=== PATIENT | male | born 1960 | race Hispanic/Latino ===

== ENCOUNTER 2019-05-09 08:46 | Observation (INO) | payer SELFPAY ==
--- NOTE | 2019-05-09 09:31 | RAD ---
XR Chest Pa Lat STANDARD History: Fluid overload Comparison: None. Findings: Lungs are clear. No pneumothorax or effusion. Cardiac silhouette and mediastinal contours a re within normal limits. Impression: No acute intrathoracic abnormality.
[2019-05-09 09:38] LABS: #Eosinphils 0.1 thou/uL (0.0-0.7); #Lymphocytes 2.2 thou/uL (1.20-3.40); #Monocytes 0.6 thou/uL (0.11-0.59); #Neutrophils 7.5 thou/uL (1.40-6.50); %Basophils 0.2 % (0.0-1.0); %Eosinophils 1.1 % (0.0-10.0); %Lymphocytes 20.8 % (21.0-51.0); %Monocytes 5.9 % (0.0-10.0); Hemoglobin 12.1 g/dL (14.0-18.0); Mean Corpuscular HGB CONC 31.1 g/dL (32.0-36.0); Mean Corpuscular Hemoglobin 25.5 pg (27.0-31.0); Mean Corpuscular Volume 81.8 fL (78.0-98.0); Mean Platelet Volume 9.6 fL (7.4-10.4); Platelet Count 184 thou/uL (130-400); RBC Distribution Width 21.8 % (11.5-14.5); Red Blood Cell (RBC) Count 4.75 mill/uL (4.70-6.10); White Blood Cell (WBC) Count 10.5 thou/uL (4.8-10.8)
[2019-05-09 09:56] LABS: ALT (SGPT) 35 U/L (8-55); AST (SGOT) 15 U/L (5-34); Alkaline Phosphatase 75 U/L (40-150); Anion Gap 12 mmol/L (10-20); BUN (Urea Nitrogen) 13 mg/dL (8.4-25.7); Bilirubin, Total 0.4 mg/dL (0.2-1.2); Calc. Creatinine Clearance 0 mL/min (70-130); Calcium 9.4 mg/dL (7.8-10.44); Carbon Dioxide 29 mmol/L (22-29); Chloride 104 mmol/L (98-107); Estimated GFR-MDRD 86; Globulin 3.4 g/dL (2.4-3.5); Glucose 98 mg/dL (70-105); Potassium 3.7 mmol/L (3.5-5.1); Protein, Total 7.4 g/dL (6.0-8.3); Sodium 141 mmol/L (136-145)
[2019-05-09 10:21] LABS: MDiff Complete? YES; Polychromasia SLIGHT = 2-3 cells (100X) (0-2/hpf)
[2019-05-09] MEDS ORDERED: Furosemide 40 MG/4 ML VIAL ONE (12:15)
[2019-05-09] MEDS ORDERED: Zolpidem Tartrate 5 MG TAB PO PRN (13:10)
[2019-05-09] MEDS ORDERED: Ondansetron ODT 4 MG TAB PO PRN (13:10)
--- NOTE | 2019-05-09 13:41 | HP ---
[facility] Call admission. [facility] HISTORY OF PRESENT ILLNESS: The patient states he has too much water in his system. He states his hands and legs have been swelling about 6 months. He has had shortness of breath with exertion for the past 2 months. No chest pain. He gives no history of orthopnea or paroxysmal nocturnal dyspnea. PAST MEDICAL HISTORY: Hypertension. MEDICATIONS: 1. Toprol 100 mg a day. 2. Nifedipine 30 mg. 3. Furosemide 40 mg a day. ALLERGIES: NO KNOWN DRUG ALLERGIES. PAST SURGICAL HISTORY: None. FAMILY HISTORY: No coronary artery disease. Mother and father had diabetes and hypertension. SOCIAL HISTORY: , full code. , next of kin. No tobacco use. States he has not had nothing alcoholic to drink in 2 months. He used to drink a case of beer on weekends. REVIEW OF SYSTEMS: GENERAL: He has migraines frequently. No dizziness, fainting, fever or chills. EYES: No double vision, blurred vision, or flashing light. EARS, NOSE, AND THROAT: No ear pain or drainage. No nasal bleeding. No trouble swallowing. CARDIAC: No chest pain, orthopnea, or paroxysmal nocturnal dyspnea. RESPIRATION: He has a dry cough with no history of asthma. No wheezing. GASTROINTESTINAL: No nausea, vomiting, diarrhea, or constipation. GENITOURINARY: No hematuria, dysuria, or nocturia. MUSCULOSKELETAL: No pain or swelling in his arms or legs. NEUROLOGICAL: No strokes, seizures, or focal weakness. PSYCHIATRIC: No anxiety or depression. SKIN: No bruising, bleeding, or rash. HEME/LYMPH: No tender or swollen lymph nodes in axilla, inguinal, or cervical area. PHYSICAL EXAMINATION: GENERAL: The patient is alert, oriented, cooperative, pleasant gentleman with at bedside. VITAL SIGNS: Blood pressure 184/49, pulse 85, respirations 16, O2 saturation 94 on room air, temperature 97.8. HEAD, EYES, EARS, NOSE, AND THROAT: Revealed pupils are equal, round, and reactive to light. Extraocular movements are intact. Sclerae are white. Tympanic membranes are clear. Nose is clear. Oral mucosal membranes are wet. Dental hygiene is good. NECK: He has a short thick neck with no palpable lymphadenopathy or thyromegaly. CHEST: Clear to auscultation and percussion. HEART: Regular rate and rhythm. First and second heart sounds are clear. There are no murmurs or gallops. ABDOMEN: Soft. Bowel sounds are normal. There is no hepatosplenomegaly. No mass. No rebound. It is protuberant. EXTREMITIES: Reveal 3 to 4+ pitting edema to above the knee. He has nonpitting edema of his hands. No cyanosis or clubbing. Pulses; carotid, radial, and femoral pulses intact. Pedal pulses totally obscured by the edema. SKIN: Warm and dry. LYMPH NODES: No tender swollen lymph nodes in axilla, inguinal, and cervical area. NEUROLOGICAL: Cranial nerves 2 through 12 are intact. Deep tendon reflexes are symmetric. IMAGING STUDIES: Chest x-ray, no cardiomegaly, CHF, or infiltrate. Reviewed by me. EKG, regular sinus rhythm with no ST-T abnormality, reviewed by me. LABORATORY DATA: CBC; white count 10.5, hemoglobin low at 12.1 with microchromic indices, platelet count 184,000. Chemistries and comprehensive metabolic profile are normal. Troponins normal. BNP is normal. ADMITTING DIAGNOSES: 1. Anasarca. 2. Uncontrolled hypertension. 3. Iron deficiency anemia. PLAN: Lasix 80 IV q.12. Hold calcium channel valente as it can aggravate edema. Continue Toprol. Considering adding QUOC inhibitor. Iron binding capacity has been ordered. I do not believe this patient can be adequately diuresed while in the hospital, he will have to be. Hopefully, we can get significant amount of the edema off on observation basis and discharge him on a higher dose of Lasix and different blood pressure medicines. Job ID: [id number]
[2019-05-09 13:59] LABS: Iron 25 ug/dL (65-175); Iron Binding Capacity, Total 388 mcg/dL (261-462); Troponin I Less than 0.010 ng/mL (< 0.028)
[2019-05-09] MEDS ORDERED: Furosemide 100 MG/10 ML VIAL SLOW IVP SCH ×2 (14:00→22:00)
[2019-05-09 15:40] VITALS: BMI 49.3
[2019-05-09 17:44] LABS: Troponin I 0.014 ng/mL (< 0.028)
[2019-05-10 05:11] LABS: Anion Gap 16 mmol/L (10-20); BUN (Urea Nitrogen) 13 mg/dL (8.4-25.7); Calc. Creatinine Clearance 188 mL/min (70-130); Calcium 9.3 mg/dL (7.8-10.44); Carbon Dioxide 27 mmol/L (22-29); Chloride 102 mmol/L (98-107); Estimated GFR-MDRD 90; Glucose 112 mg/dL (70-105); Sodium 142 mmol/L (136-145)
[2019-05-10 05:14] LABS: Potassium 2.9 mmol/L (3.5-5.1)
[2019-05-10] MEDS ORDERED: Potassium Chloride 20 MEQ TAB PO SCH (05:30)
[2019-05-10] MEDS: Furosemide 100 MG/10 ML VIAL SLOW IVP SCH ×2 (05:52→13:16)
[2019-05-10 06:09] LABS: #Eosinphils 0.1 thou/uL (0.0-0.7); #Lymphocytes 1.9 thou/uL (1.20-3.40); #Monocytes 0.7 thou/uL (0.11-0.59); #Neutrophils 5.9 thou/uL (1.40-6.50); %Basophils 0.4 % (0.0-1.0); %Eosinophils 1.1 % (0.0-10.0); %Lymphocytes 22.3 % (21.0-51.0); %Monocytes 8.4 % (0.0-10.0); %Neutrophils 67.7 % (42.0-75.0); Band 6 % (5-11); Eosinophils 2 % (0-10); Hemoglobin 11.3 g/dL (14.0-18.0); Lymphocytes 14 % (21-51); MDiff Complete? YES; Mean Corpuscular HGB CONC 30.9 g/dL (32.0-36.0); Mean Corpuscular Hemoglobin 25.2 pg (27.0-31.0); Mean Corpuscular Volume 81.4 fL (78.0-98.0); Mean Platelet Volume 9.6 fL (7.4-10.4); Monocytes 11 % (0-10); Neutrophil 66 % (42-75); Platelet Count 169 thou/uL (130-400); RBC Distribution Width 21.8 % (11.5-14.5); Reactive Lymphocytes 1 % (0-10); White Blood Cell (WBC) Count 8.7 thou/uL (4.8-10.8)
--- NOTE | 2019-05-10 07:43 | PDOC.PN ---
- Subjective Encounter Start Date: 05/10/19 Encounter Start Time: 07:42 Subjective: good diuresis - Objective Resuscitation Status - Order Detail: 05/09/19 13:06 Resuscitation Status Routine Resuscitation Status: FULL: Full Resuscitation Vital Signs & Weight: Vital Signs (12 hours) Temp Pulse Resp BP Pulse Ox 05/10/19 03:55 98.1 F 92 18 166/84 H 92 L 05/09/19 23:44 83 143/84 H Weight Weight 318 lb 14.4 oz I&O: 05/09/19 05/10/19 05/11/19 06:59 06:59 06:59 Intake Total 380 Output Total 2125 Balance -1745 Result Diagrams: 05/10/19 04:21 05/10/19 04:21 Phys Exam - Physical Examination Neck: no JVD Respiratory: clear to auscultation bilateral Cardiovascular: RRR, no significant murmur Gastrointestinal: soft, positive bowel sounds Musculoskeletal: edema present Dx/Plan (1) Anasarca Code(s): R60.1 - GENERALIZED EDEMA Status: Acute (2) HTN (hypertension) Code(s): I10 - ESSENTIAL (PRIMARY) HYPERTENSION Status: Chronic Qualifiers: Hypertension type: essential hypertension Qualified Code(s): I10 - Essential (primary) hypertension (3) Hypokalemia Code(s): E87.6 - HYPOKALEMIA Status: Acute (4) Iron deficiency anemia Code(s): D50.9 - IRON DEFICIENCY ANEMIA, UNSPECIFIED Status: Acute Qualifiers: Iron deficiency anemia type: unspecified iron deficiency Qualified Code(s) : D50.9 - Iron deficiency anemia, unspecified - Plan stool for occult blood -: add k dur 20 qdd -: add ferrous gluconate 324 bid -: cont diuresis -: add apresoline 25 tid * .
[2019-05-10] MEDS: Potassium Chloride 20 MEQ TAB PO SCH (07:50)
[2019-05-10] MEDS: hydrALAZINE 25 MG TAB PO SCH ×3 (07:50→20:39)
[2019-05-10] MEDS: Ferrous Gluconate 324 MG TAB PO SCH (07:50)
[2019-05-10] MEDS: Enoxaparin Sodium 40 MG/0.4 ML SYRINGE SC SCH (07:51)
[2019-05-10] MEDS: Acetaminophen 325 MG TAB PO PRN (18:02)
[2019-05-11] MEDS: Acetaminophen 325 MG TAB PO PRN (03:35)
[2019-05-11] MEDS: Furosemide 100 MG/10 ML VIAL SLOW IVP SCH (05:39)
[2019-05-11 07:58] VITALS: BP 131/70; TEMP 98
[2019-05-11] MEDS: Ferrous Gluconate 324 MG TAB PO SCH (08:06)
[2019-05-11] MEDS: hydrALAZINE 25 MG TAB PO SCH (08:06)
[2019-05-11] MEDS: Potassium Chloride 20 MEQ TAB PO SCH (08:06)
[2019-05-11] MEDS: Enoxaparin Sodium 40 MG/0.4 ML SYRINGE SC SCH (08:07)
--- NOTE | 2019-05-11 08:12 | DIS ---
DATE OF ADMISSION: 05/09/2019 DATE OF DISCHARGE: 05/11/2019 [facility] Call Admission for [facility]. The patient has no doctor. Referred to [facility] Hospitalist Service for generalized edema. The patient was seen and examined. He had 3 to 4+ edema in his extremities. FINAL DIAGNOSES: 1. Anasarca. 2. Hypertension. 3. Iron deficiency anemia. 4. Hypokalemia. He was discharged on a heart-healthy diet. PRESCRIPTIONS: Written for; 1. Hydralazine 25 mg p.o. t.i.d. 2. K-Dur 20 mEq a day. 3. Lasix 80 mg twice a day. 4. Ferrous gluconate 324 mg twice a day. 5. He was already on losartan/hydrochlorothiazide 50/12.5 one a day that was continued. 6. He was on metoprolol 50 mg a day that was continued. ALLERGIES: NONE. DIET: Heart healthy. PENDING AT TIME OF DISCHARGE: Nothing. HOSPITAL COURSE: The patient was evaluated thoroughly. His chest x-ray revealed no evidence of congestive heart failure, etc. His laboratory, he had an anemia of 12.1 with microcytic, microchromic indices. His chemistries, comprehensive metabolic profile was normal. For some reason, the ER ordered troponin levels, which were also normal. He also had a normal BNP. Iron studies were drawn. He had an iron of 25 and a TIBC of 388. Diagnostic of iron deficiency anemia, he was started on iron. A stool for occult blood was done, which was negative. The patient was on nifedipine, which increases fluid retention. This was discontinued and adjusted and replaced with other medicines. The patient has diuresed significantly. His hands are much less edematous. He is down to 2+ edema in his ankles. He is being discharged on the 80 mg of Lasix twice a day. He does not have a doctor. I have told him he really needs to obtain a doctor at followup with a physician. Since there is no etiology of his iron deficiency anemia, he definitely needs panendoscopy as an outpatient. No consultations were done. No procedures were done. At discharge, the patient's vital signs are stable. He has lost 4 pounds over the past 24 hours. I suspect with the Lasix 80 mg twice a day, he will continue to diurese. This will probably need to be adjusted at followup. His cardiac and pulmonary exam were normal. Job ID: [id number]
--- NOTE | 2019-05-13 16:10 | EKG ---
Test Reason : Blood Pressure : / mmHG Vent. Rate : 094 BPM Atrial Rate : 094 BPM P-R Int : 172 ms QRS Dur : 096 ms QT Int : 382 ms P-R-T Axes : 046 241 026 degrees QTc Int : 477 ms Normal sinus rhythm Right superior axis deviation Abnormal ECG Confirmed by LOBITO DE JESUS M.D. ([id number]), production editor MERLY LEONARD ([id number]) on 05/13/2019 4:10:06 PM Referred By: Confirmed By:LOBITO DE JESUS M.D.
== END 2019-05-11 09:05 | disposition home or self-care (01) ==
LOC: ERS 08:46 → ERHOLD 12:25 → 2SW 14:45
PROVIDERS: ADMIT Internal Medicine; ATTEND Internal Medicine
DX: R60.1 Generalized edema (principal); I10 Essential (primary) hypertension; D50.9 Iron deficiency anemia, unspecified; E87.6 Hypokalemia; Z79.899 Other long term (current) drug therapy
CPT/HCPCS: 36415; 71046; 80048; 80053; 82274; 82550; 83540; 83550; 83880; 84484; 85025; 93005; 93306; 96372; 96374; 96376; G0378; J1650; J1940; Q0162

== ENCOUNTER 2019-05-24 15:08 | Inpatient (IN) | payer SELFPAY ==
[~2019-05-24 15:08] MED LIST: ISOVUE-370 76%-LOCM 1 ML ONE
[2019-05-24 16:02] LABS: #Eosinphils 0.2 thou/uL (0.0-0.7); #Lymphocytes 2.2 thou/uL (1.20-3.40); #Monocytes 0.8 thou/uL (0.11-0.59); #Neutrophils 4.5 thou/uL (1.40-6.50); %Basophils 0.4 % (0.0-1.0); %Eosinophils 2.1 % (0.0-10.0); %Lymphocytes 28.7 % (21.0-51.0); %Monocytes 10.9 % (0.0-10.0); Hemoglobin 12.8 g/dL (14.0-18.0); Mean Corpuscular HGB CONC 32.3 g/dL (32.0-36.0); Mean Corpuscular Hemoglobin 25.9 pg (27.0-31.0); Mean Corpuscular Volume 80.1 fL (78.0-98.0); Mean Platelet Volume 9.1 fL (7.4-10.4); Platelet Count 266 thou/uL (130-400); RBC Distribution Width 20.1 % (11.5-14.5); Red Blood Cell (RBC) Count 4.94 mill/uL (4.70-6.10); White Blood Cell (WBC) Count 7.8 thou/uL (4.8-10.8)
[2019-05-24] MEDS ORDERED: Furosemide 100 MG/10 ML VIAL ONE (16:06)
--- NOTE | 2019-05-24 16:17 | RAD ---
CHEST ONE VIEW: 05/23/19 COMPARISON: 05/09/19. HISTORY: Dyspnea. FINDINGS: Slight elongation of the aorta. Normal cardiac silhouette. Pulmonary vessels and hilum are normal. Co stophrenic angles are clear. Chronic changes, without consolidation or mass. No pneumothorax or osseo us abnormalities. Slight elevation of the right hemidiaphragm, is unchanged. IMPRESSION: No acute cardiopulmonary process. POS: [facility]
[2019-05-24 16:20] LABS: ALT (SGPT) 50 U/L (8-55); AST (SGOT) 41 U/L (5-34); Albumin 3.7 g/dL (3.5-5.0); Alkaline Phosphatase 72 U/L (40-150); Anion Gap 18 mmol/L (10-20); BUN (Urea Nitrogen) 11 mg/dL (8.4-25.7); Calc. Creatinine Clearance 0 mL/min (70-130); Calcium 9.4 mg/dL (7.8-10.44); Carbon Dioxide 28 mmol/L (22-29); Chloride 89 mmol/L (98-107); Estimated GFR-MDRD 50; Globulin 3.7 g/dL (2.4-3.5); Glucose 122 mg/dL (70-105); Protein, Total 7.4 g/dL (6.0-8.3); Sodium 132 mmol/L (136-145)
[2019-05-24 16:25] LABS: Potassium 2.7 mmol/L (3.5-5.1)
[2019-05-24] MEDS ORDERED: Magnesium 2 GM/50 ML BAG (IN WATER) ONE (17:16)
[2019-05-24] MEDS ORDERED: Acetaminophen 500 MG TAB ONE (17:16)
[2019-05-24] MEDS ORDERED: Potassium Chloride 40 MEQ in Sodium Chloride 0.9% 500 ML IVPB ONE (17:30)
[2019-05-24 19:16] LABS: Troponin I Less than 0.010 ng/mL (< 0.028)
[2019-05-24] MEDS ORDERED: Acetaminophen 650 MG Suppository PR PRN (20:27)
[2019-05-24] MEDS ORDERED: Sodium Chloride 0.9% 1,000 ML IV SCH (20:30)
[2019-05-24] MEDS: Senokot S 8.6-50 MG TAB PO SCH (21:05)
[2019-05-24] MEDS: Famotidine/PF 20 mg/2ml Vial SLOW IVP SCH (21:07)
[2019-05-24 21:20] LABS: Anion Gap 20 mmol/L (10-20); CK (CPK) 210 U/L (30-200); Carbon Dioxide 25 mmol/L (22-29); Chloride 90 mmol/L (98-107); Magnesium 2.1 mg/dL (1.6-2.6); Potassium 3.2 mmol/L (3.5-5.1); Sodium 132 mmol/L (136-145)
[2019-05-24 21:22] LABS: Troponin I Less than 0.010 ng/mL (< 0.028)
--- NOTE | 2019-05-24 21:40 | CT ---
CT arteriogram chest with IV contrast and 3-D imaging HISTORY: Chest pain. Dyspnea. FINDINGS: Low density filling defects are present within the pulmonary arteries to the right lower lo be, with near complete occlusion. Incompletely occlusive emboli within the right upper lobe and left upper lobe pulmonary arteries. Normal origin of the great vessels at the aortic arch. Mild bibasilar atelectasis. No mediastinal danisha nopathy. No pleural fluid or pneumothorax. IMPRESSION: Bilateral pulmonary emboli. Overall moderate clot burden. Page was placed to the [facility] clinician at 2133 hours. Code CR.
--- NOTE | 2019-05-24 21:40 | HP ---
CHIEF COMPLAINT: Shortness of breath at rest and weakness. HISTORY OF PRESENT ILLNESS: Mr. Clay is a pleasant 58-year-old man who was recently discharged from the hospital on May 11, 2019, after being treated for generalized edema with 80 mg of Lasix twice a day, which was provided upon discharge. He was also discharged on hydralazine 25 mg 3 times a day and advised to establish care with a primary care physician. The patient has not done so due to not having insurance. He states he had generalized deconditioning and weakness at the time of his recent admission and has had no improvement with regard to that. He continued with medications until 3 days ago. The patient continued to be very short of breath with any exertion and also was experiencing significant weakness and reduced appetite. He has not had anything to eat for approximately 2 weeks. He also has been experiencing headaches intermittently, which he attributed to the medications. This prompted him to stop all medicines 3 days ago, after which he began to note recurrent generalized edema. His shortness of breath has persisted, but not worsened. The patient states he has been checking his blood pressure at home twice a day and typically this has been prior to taking his medications. His systolic blood pressure has ranged anywhere between 115 and 120. He is unsure how the medications then affected his blood pressure and if he has been hypotensive at any time given the fact that he has been on 25 mg of apresoline 3 times a day and Lasix 80 mg twice a day. The patient denies having any syncopal episodes. He reports feeling lightheaded and just generally weak. He reports having a persistent cough. It is dry and denies any hemoptysis. He denies any recent fevers, chills, or sweats. Denies having any chest pain or palpitations. No abdominal pain or cramping. He does complain of constipation until today. His last bowel movement was 3 days ago. Bowel movement today was notable for hard stools, but normal in color. He does state occasionally he will experience some blood-tinged stools as well as straining. He denies having any urinary symptoms. All other review of systems are negative. The patient underwent an echo on May 10, 2019, which showed an EF of 60% to 65% with changes suggestive of diastolic dysfunction. The left atrium mildly dilated with mild mitral regurgitation and mild tricuspid regurgitation. Aortic valve appeared sclerotic. PAST MEDICAL HISTORY: 1. Hypertension. 2. History of heavy alcohol use, previously drank 24 beers over the weekend. 3. Obesity. 4. Iron-deficiency anemia. PAST SURGICAL HISTORY: None. ALLERGIES: NO KNOWN DRUG ALLERGIES. CURRENT MEDICATIONS: 1. Hydralazine 25 mg p.o. 3 times a day. 2. Potassium chloride 20 mEq p.o. twice daily. 3. Lasix 80 mg p.o. twice daily. PHYSICAL EXAMINATION: GENERAL: The patient appears obese, well developed, and in no acute distress. He is notably short of breath with minimal exertion. VITAL SIGNS: Temperature 98, pulse 96, respirations 24, O2 saturation 97% on room air, blood pressure 131/86. HEENT: Normocephalic and atraumatic. Pupils are equal, round, and reactive to light. Sclerae without icterus. Oropharynx is clear. NECK: Supple without lymphadenopathy. No tenderness. LUNGS: Clear to auscultation bilaterally. Reduced breath sounds at the bilateral bases. No rales or crackles. CARDIAC: Regular rate and rhythm. ABDOMEN: Obese, nontender. No guarding or rigidity. He does have an umbilical hernia that is reducible and nontender. No renal angle tenderness. EXTREMITIES: Trace bilateral lower extremity edema. NEUROLOGIC: Alert and oriented x3. Speech normal. No neuro deficits. SKIN: Without rash or jaundice. DIAGNOSTIC STUDIES: EKG showed sinus tachycardia with a heart rate of 105 and prolonged QT with a QTc of 507 milliseconds. Chest x-ray, no infiltrates, pneumothorax. No masses, cardiomegaly, and no signs of congestive heart failure or pleural effusions. No acute cardiopulmonary process noted. Slight elevation of the right hemidiaphragm is unchanged. LABORATORY DATA: White blood count 7.8, hemoglobin 12.8, hematocrit 39.5, and platelets 266. Sodium 132, potassium 2.7, anion gap 18, BUN 11, creatinine 1.45 , GFR 50, glucose 122, calcium 9.4, magnesium 1.5, total bilirubin 1.0, AST 41, ALT 50, alkaline phosphatase 72. Troponin I negative x2. BNP 37.3, total protein 7.4, albumin 3.7. IMPRESSION AND PLAN: Mr. Clay is a pleasant 58-year-old man who has been referred to [facility] for management of the following. 1. Shortness of breath. Low sats have improved to 97% on room air. Treated with Lasix in the ER for suspected fluid overload. Chest x-ray unremarkable. BNP normal. We will obtain D-dimer and rule out PE given the fact that he has been extremely sedentary and therefore potentially at risk for PE. He is also tachycardic and tachypneic. If elevated, we will obtain a CT angiogram of the chest. 2. Generalized weakness. The patient with physical deconditioning, which has been persisting even at the time of his recent admission from which he has not recovered. He does have a lack of appetite and has had no intake for the last 2 weeks, which could be contributing to his weakness. We will consult the dietitian as well as PT/OT. 3. Generalized edema. Recent echo done already showing a normal EF, however, with some evidence of diastolic dysfunction. He does have a history of heavy alcohol use and potentially the generalized edema could be associated with underlying liver cirrhosis. He has not had investigations for this in the past. We will monitor LFTs. Currently, AST is elevated at 41. 4. Electrolyte abnormalities. Potassium and magnesium are replaced. We will recheck and replace further as necessary. 5. Hypertension. Monitor blood pressure. For now, we will hold hydralazine as patient states his systolic blood pressure has been in the 115 to 120s at home. We will order hydralazine as p.r.n. 6. Constipation. Senna stool softeners. 7. Gastrointestinal prophylaxis. 8. Deep venous thrombosis prophylaxis with ROBYN hose. We will await D-dimer. 9. Code status is full. His surrogate decision maker is his , Pamela Clay. The patient's case discussed with attending who agrees with plan of care as described above. ADDENDUM: Informed by Radiologist at 21:41pm that patient was confirmed to have bilateral pulmonary emboli without evidence of right heart strain. Patient with normal sats on RA but placed on continuous Oxygen. Heparin initiated as per DVT/PE protocol. Consult placed to Dr. Barber for tomorrow. Strict bedrest x 24 hours. No indication for transfer to [facility] at this present time. Converted to inpatient. Discussed with Dr. Wharton who agrees with plan as above. Job ID: [id number] [facility]
[2019-05-24 22:09] LABS: Hemoglobin 11.9 g/dL (14.0-18.0); Platelet Count 257 thou/uL (130-400)
[2019-05-24] MEDS: Heparin 10,000 UNITS/ 10 ML VIAL SLOW IVP SCH (23:07)
[2019-05-24] MEDS: Heparin 25,000 units/D5W 500 ML IVPB SCH (23:14)
[2019-05-24] MEDS: Acetaminophen 325 MG TAB PO PRN (23:16)
[2019-05-25] MEDS: Acetaminophen 325 MG TAB PO PRN ×3 (04:08→23:03)
[2019-05-25 04:27] LABS: #Basophils 0.1 thou/uL (0.0-0.2); #Eosinphils 0.2 thou/uL (0.0-0.7); #Monocytes 0.8 thou/uL (0.11-0.59); #Neutrophils 2.9 thou/uL (1.40-6.50); %Eosinophils 3.1 % (0.0-10.0); %Lymphocytes 33.2 % (21.0-51.0); %Monocytes 13.2 % (0.0-10.0); %Neutrophils 49.5 % (42.0-75.0); Hemoglobin 11.5 g/dL (14.0-18.0); Mean Corpuscular HGB CONC 31.5 g/dL (32.0-36.0); Mean Corpuscular Hemoglobin 25.2 pg (27.0-31.0); Mean Corpuscular Volume 80.3 fL (78.0-98.0); Mean Platelet Volume 8.5 fL (7.4-10.4); Platelet Count 259 thou/uL (130-400); RBC Distribution Width 19.9 % (11.5-14.5); Red Blood Cell (RBC) Count 4.56 mill/uL (4.70-6.10); White Blood Cell (WBC) Count 5.9 thou/uL (4.8-10.8)
[2019-05-25 04:42] LABS: Anion Gap 15 mmol/L (10-20); BUN (Urea Nitrogen) 11 mg/dL (8.4-25.7); Calc. Creatinine Clearance 108 mL/min (70-130); Calcium 9.3 mg/dL (7.8-10.44); Carbon Dioxide 29 mmol/L (22-29); Chloride 92 mmol/L (98-107); Estimated GFR-MDRD 51; Glucose 127 mg/dL (70-105); Sodium 133 mmol/L (136-145)
[2019-05-25 04:44] LABS: Potassium 2.8 mmol/L (3.5-5.1)
[2019-05-25] MEDS: Heparin 10,000 UNITS/ 10 ML VIAL SLOW IVP SCH ×2 (04:52→22:25)
[2019-05-25] MEDS ORDERED: Potassium Chloride 20 MEQ TAB PO SCH ×2 (05:00→21:00)
[2019-05-25] MEDS ORDERED: Potassium Chloride 20 MEQ in Premix Bag 1 BAG IVPB SCH (05:00)
--- NOTE | 2019-05-25 07:47 | ULT ---
ABDOMINAL ULTRASOUND COMPLETE: Date: 05/25/19 HISTORY: Abdominal distention, possible ascites, liver disease. COMPARISON: CT angio chest dated 05/24/19. FINDINGS: There is hepatomegaly with extensive increased liver echogenicity, evidence for severe fatty change. The gallbladder demonstrates no gallstones, wall thickening, or edema, or pericholecystic fluid. Comm on bile duct is poorly seen, but there is no overt ductal dilatation. Visualized pancreas, IVC, aorta , and spleen are unremarkable. No evidence for renal hydronephrosis. Exam was somewhat limited techni damaso because of body habitus and gas. IMPRESSION: Markedly fatty liver. No evidence of gallstones or ductal dilatation. No evidence for ascites. No oth er significant acute process. POS: [facility]
[2019-05-25] MEDS: Heparin 25,000 units/D5W 500 ML IVPB SCH ×2 (08:38→22:26)
[2019-05-25] MEDS: Senokot S 8.6-50 MG TAB PO SCH ×3 (10:00→21:33)
[2019-05-25] MEDS: Lidocaine 5% Patch TD SCH (10:01)
[2019-05-25] MEDS: Famotidine/PF 20 mg/2ml Vial SLOW IVP SCH (10:01)
[2019-05-25 11:32] LABS: PTT 201.4 SEC (22.9-36.1)
[2019-05-25] MEDS ORDERED: Magnesium 2 GM/50 ML 2 GM in Premix Bag 1 BAG IVPB SCH (13:30)
[2019-05-25] MEDS: Potassium Chloride 20 MEQ TAB PO SCH ×2 (13:47→16:42)
[2019-05-25 14:06] LABS: INR-International Normal Ratio 1.1; Prothrombin Time 14.6 SEC (12.0-14.7)
--- NOTE | 2019-05-25 14:13 | CON ---
DATE OF CONSULTATION: 05/25/2019 SERVICE: Pulmonary Medicine REASON FOR CONSULT: PE. HISTORY OF PRESENT ILLNESS: The patient is a 58-year-old male with past medical history significant for essentially nothing. He has never had a history of PE. He did not have a family history of PE either. He is in his usual state of health when he started having increasing shortness of breath going on for about 2 or 3 weeks. This was slow and progressive. He does not remember a specific event that occurred. He had not had any recent swelling in his lower extremities or upper extremities. He presented to the emergency department previously. He had some lower extremity edema. He is diuresed and started feeling better and was subsequently discharged. That being said, this was a short-lived improvement. He subsequently came back to the hospital couple of days later. Ultimately, on this occasion, a CT PE protocol was performed demonstrating pulmonary emboli throughout bilateral lung laurent. The patient also has multiple features consistent with sleep apnea. Otherwise, he was not having any fevers or chills. There is no nausea, vomiting, or diarrhea. He is not having any dysuria, frequency, hot and red swollen joints or new rashes. His weight is stable if not increasing through time. PAST MEDICAL HISTORY: 1. Tension. 2. Morbid obesity. 3. Obstructive sleep apnea based on clinical symptoms. 4. Iron deficiency anemia. 5. History of pulmonary embolism. 6. Alcohol abuse. PAST SURGICAL HISTORY: None. ALLERGIES: NO KNOWN DRUG ALLERGIES. MEDICATIONS: List of the inpatient medications were reviewed. Multiple updates were made. FAMILY HISTORY: Noncontributory. SOCIAL HISTORY: He has an extensive alcohol use. He denies any illicit drugs. He has no exposure to chemicals, dust, asbestos, or tuberculosis that he is aware of. REVIEW OF SYSTEMS: General; head eyes, ears, nose, and throat; cardiovascular, respiratory, GI, , musculoskeletal, neurologic, and skin are negative, except as mentioned in the HPI. PHYSICAL EXAMINATION: VITAL SIGNS: Afebrile, pulse 94, blood pressure 131/97, respirations 17, saturation 91% on 2 L nasal cannula. GENERAL: The patient is awake and alert, in no apparent distress. LUNGS: Decent air entry bilaterally. There is no prolonged expiratory phase, wheezing, rhonchi, or crackles present. HEART: Normal rate and regular. ABDOMEN: Soft, nontender, nondistended. Bowel sounds are positive. MUSCULOSKELETAL: No cyanosis or clubbing. No pitting in the bilateral lower extremities. NEUROLOGIC: Grossly nonfocal. IMAGING STUDIES: CTA of the chest demonstrates pulmonary embolism. They are worse on the right compared to the left. There is not a significant reflux of contrast into the inferior vena cava, and the RV does not look severely volume overloaded. Abdominal ultrasound demonstrates markedly fatty liver. No ductal dilation. No ascites. No other acute process is appreciated. LABORATORY DATA: WBC 5.9, hemoglobin 11.5, and platelets 259,000. D-dimer 2.54. Creatinine 1.42 and roughly stable, potassium 2.8, sodium 133, magnesium 1.7. Troponin x2 are negative. BNP is also unremarkable. Liver function studies are essentially unremarkable, except for minimal elevation of the AST. ASSESSMENT: 1. Acute hypoxic respiratory failure. 2. Acute pulmonary embolism, without evidence of RV strain. 3. Alcohol abuse. DISCUSSION AND PLAN: I will replace the potassium and magnesium. Agree with ASE monitoring. If he does show signs of withdrawal, benzodiazepines will be provided. Pulmonary/Critical Care will continue to follow very closely. At this point, the patient will need to have 9 months of anticoagulation. His target INR will be between 2 and 3. We can initiate Coumadin this evening as he will unlikely be able to afford a direct oral anticoagulant. Ultimately, if he can get insurance, he would benefit from a polysomnogram with subsequent initiation of noninvasive therapy. 70 minutes have been devoted to this patient in various activities. I personally reviewed all imaging studies and laboratory data noted within this document. For fifty percent of this time, I was interacting with the patient at the bedside or coordinating care with the care team. For the remainder of the time I was immediately available to the patient in the hospital unit. Job ID: [id number] [facility]
[2019-05-25] MEDS: Warfarin Sodium 5 MG TAB PO SCH (16:42)
--- NOTE | 2019-05-25 17:13 | PDOC.PN ---
- Subjective Encounter Start Date: 05/25/19 Encounter Start Time: 17:12 Mr. Nuñez was seen today in follow-up of Acute PE. He does not have any complaints. He says he is breath better today. - Objective Resuscitation Status - Order Detail: 05/24/19 20:27 Resuscitation Status Routine Co-Sign Provider: Resuscitation Status: FULL: Full Resuscitation MAR Reviewed: Yes Vital Signs & Weight: Vital Signs (12 hours) Temp Pulse Resp BP Pulse Ox 05/25/19 16:44 98.0 F 99 24 H 174/90 H 93 L 05/25/19 12:43 97.4 F L 94 17 171/97 H 91 L 05/25/19 10:03 97 05/25/19 08:45 98.1 F 93 20 162/91 H 92 L 05/25/19 07:34 97.8 F 95 22 H 117/60 98 Weight Admit Weight 304 lb Weight 304 lb 3.2 oz I&O: 05/24/19 05/25/19 05/26/19 06:59 06:59 06:59 Intake Total 1145 Output Total 425 Balance 720 Result Diagrams: 05/25/19 04:05 05/25/19 04:05 Phys Exam - Physical Examination HEENT: PERRLA + mild expiratory wheeze, no rhonchi or rales Cardiovascular: RRR, no significant murmur, no rub Gastrointestinal: soft, non-tender, no distention, positive bowel sounds Musculoskeletal: no edema, pulses present Dx/Plan (1) Acute pulmonary embolus Code(s): I26.99 - OTHER PULMONARY EMBOLISM WITHOUT ACUTE COR PULMONALE Status : Acute (2) HTN (hypertension) Code(s): I10 - ESSENTIAL (PRIMARY) HYPERTENSION Status: Chronic Qualifiers: Hypertension type: essential hypertension Qualified Code(s): I10 - Essential (primary) hypertension (3) Alcohol abuse Code(s): F10.10 - ALCOHOL ABUSE, UNCOMPLICATED Status: Chronic - Plan * Acute Pulmonary embolus- continue IV Heparin, until coumadin is therapeutic * Alcohol abuse- brief counseling provided, and currently he does not appear to have any signs of withdrawal * HTN- will re-start his antihypertensives, and provider PRN medications as needed * Hypokalemia- continue to replace potassium.
[2019-05-25] MEDS ORDERED: cloNIDine 0.1 MG TAB PO PRN (17:17)
[2019-05-25] MEDS ORDERED: hydrALAZINE 20 MG/ML VIAL SLOW IVP PRN (17:17)
[2019-05-25] MEDS: hydrALAZINE 25 MG TAB PO SCH (21:30)
[2019-05-25] MEDS: Famotidine 20 MG TAB PO SCH (21:31)
[2019-05-25] MEDS: Lidocaine Patch Removal 1 EACH TOP SCH (21:31)
[2019-05-26 05:21] LABS: Phosphorus 3.1 mg/dL (2.3-4.7)
[2019-05-26 05:22] LABS: Anion Gap 15 mmol/L (10-20); BUN (Urea Nitrogen) 9 mg/dL (8.4-25.7); Calc. Creatinine Clearance 139 mL/min (70-130); Carbon Dioxide 27 mmol/L (22-29); Chloride 92 mmol/L (98-107); Estimated GFR-MDRD 68; Glucose 124 mg/dL (70-105); Magnesium 1.8 mg/dL (1.6-2.6); Sodium 131 mmol/L (136-145)
[2019-05-26] MEDS: Lidocaine 5% Patch TD SCH (08:19)
[2019-05-26] MEDS: Senokot S 8.6-50 MG TAB PO SCH ×2 (08:19→20:39)
[2019-05-26] MEDS: hydrALAZINE 25 MG TAB PO SCH ×3 (08:19→20:37)
[2019-05-26] MEDS: Famotidine 20 MG TAB PO SCH (08:19)
[2019-05-26 08:24] LABS: INR-International Normal Ratio 1.1; Prothrombin Time 14.4 SEC (12.0-14.7)
[2019-05-26] MEDS: Heparin 25,000 units/D5W 500 ML IVPB SCH ×2 (09:59→20:38)
[2019-05-26] MEDS ORDERED: Potassium Chloride 20 MEQ TAB PO SCH ×2 (13:00→17:00)
[2019-05-26] MEDS ORDERED: Furosemide 20 MG/2 ML VIAL SLOW IVP SCH (13:30)
[2019-05-26] MEDS ORDERED: Magnesium 2 GM/50 ML 2 GM in Premix Bag 1 BAG IVPB SCH (13:30)
--- NOTE | 2019-05-26 13:42 | PRG ---
DATE OF SERVICE: 05/26/2019 SERVICE: Pulmonary Medicine. INTERVAL HISTORY: The patient is doing really well from respiratory standpoint. He is breathing comfortably. He has no complaints of chest discomfort. He indicates that his breathing is a little better than yesterday, but it still labored. He has no problems with appetite, fevers, chills, cough, sputum production, or overnight events. He continues to have persistent lower extremity edema, which is mild. PHYSICAL EXAMINATION: VITAL SIGNS: Afebrile, pulse 101, blood pressure 164/82, respirations are 24, and saturation 98% on 2 L nasal cannula. GENERAL: The patient is awake and alert, in no apparent distress. LUNGS: Decent air entry. I do not appreciate a prolonged expiratory phase or wheezing. HEART: Normal rate regular. ABDOMEN: Soft, nontender, and nondistended. Bowel sounds are positive. MUSCULOSKELETAL: No cyanosis or clubbing. There is 1 to 2+ pitting in the bilateral lower extremities and it is symmetric. GENITOURINARY: No Noonan. NEUROLOGIC: Nonfocal. LABORATORY DATA: INR 1.1. Potassium 3.0, magnesium 1.8, and phosphorus 3.1. Creatinine is downtrending to 1.10. IMAGING DATA: Abdominal ultrasound demonstrates marked fatty liver. No ductal dilation is present. ASSESSMENT: 1. Acute hypoxic respiratory failure. 2. Acute pulmonary embolism. 3. Alcohol abuse. 4. Fatty liver disease. DISCUSSION AND PLAN: I will replace the potassium and magnesium today. We will continue to diurese the patient gently down to euvolemia. I will give him an additional dose of Lasix today. He will require nine months of anticoagulation. Direct oral anticoagulant would be reasonable, but if we cannot set that up because of funding issues, he will need to go out on warfarin. I will wean away oxygen through time. Once he is off oxygen, he will be stable for transition out of the hospital, provided that we have a good followup for him in [facility], or with a primary care physician. Job ID: [id number] MTDD
[2019-05-26] MEDS: Warfarin Sodium 5 MG TAB PO SCH (16:59)
[2019-05-26] MEDS: Acetaminophen 325 MG TAB PO PRN (17:07)
--- NOTE | 2019-05-26 18:04 | PDOC.PN ---
- Subjective Encounter Start Date: 05/26/19 Encounter Start Time: 11:00 Mr. Clay was seen today in follow-up of respiratory failure due to PE. He is breathing a little better, but still appears a bit labored. - Objective Resuscitation Status - Order Detail: 05/24/19 20:27 Resuscitation Status Routine Co-Sign Provider: Resuscitation Status: FULL: Full Resuscitation MAR Reviewed: Yes Vital Signs & Weight: Vital Signs (12 hours) Temp Pulse Pulse Pulse Pulse Resp BP 05/26/19 15:44 101 H 121 H 107 H 05/26/19 15:02 98.8 F 98 24 H 05/26/19 14:46 101 H 164/82 H 05/26/19 11:24 98.2 F 101 H 24 H 164/82 H 05/26/19 10:41 99 107 H 05/26/19 08:19 05/26/19 07:44 154/68 H 05/26/19 07:15 98.2 F 99 20 BP BP BP BP Pulse Ox Pulse Ox Pulse Ox 05/26/19 15:44 135/75 148/75 H 100 98 05/26/19 15:02 138/71 97 05/26/19 14:46 05/26/19 11:24 164/82 H 98 05/26/19 10:41 135/70 142/84 H 92 L 94 L 05/26/19 08:19 98 05/26/19 07:44 05/26/19 07:15 154/68 H 98 Pulse Ox 05/26/19 15:44 100 05/26/19 15:02 05/26/19 14:46 05/26/19 11:24 05/26/19 10:41 05/26/19 08:19 05/26/19 07:44 05/26/19 07:15 Weight Admit Weight 304 lb 3.2 oz Weight 305 lb 9 oz I&O: 05/25/19 05/26/19 05/27/19 06:59 06:59 06:59 Intake Total 2967 287 2826 Output Total 425 Balance 603 214 8020 Result Diagrams: 05/25/19 04:05 05/26/19 04:49 Phys Exam - Physical Examination HEENT: PERRLA Respiratory: wheezing present + decreased breath sounds at the bases Cardiovascular: RRR, no significant murmur, no rub Gastrointestinal: soft, non-tender, no distention, positive bowel sounds Musculoskeletal: no edema, pulses present Dx/Plan (1) Acute pulmonary embolus Code(s): I26.99 - OTHER PULMONARY EMBOLISM WITHOUT ACUTE COR PULMONALE Status : Acute (2) HTN (hypertension) Code(s): I10 - ESSENTIAL (PRIMARY) HYPERTENSION Status: Chronic Qualifiers: Hypertension type: essential hypertension Qualified Code(s): I10 - Essential (primary) hypertension (3) Alcohol abuse Code(s): F10.10 - ALCOHOL ABUSE, UNCOMPLICATED Status: Chronic (4) Hypokalemia Code(s): E87.6 - HYPOKALEMIA Status: Acute - Plan * Acute Pulmonary Embolus- continue Heparin drip, and coumadin * INR was 1.1 today * Will add Duonebs * Agree with kobe * Hypokalemia- continue to replace potassium. * HTN- blood pressure is better
[2019-05-26] MEDS: Potassium Chloride 20 MEQ TAB PO SCH (20:37)
[2019-05-26] MEDS: Lidocaine Patch Removal 1 EACH TOP SCH (20:39)
[2019-05-26 23:53] LABS: Hemoglobin 11.6 g/dL (14.0-18.0); Platelet Count 297 thou/uL (130-400)
[2019-05-27] MEDS: Acetaminophen 325 MG TAB PO PRN ×2 (03:53→20:20)
[2019-05-27] MEDS: Heparin 25,000 units/D5W 500 ML IVPB SCH ×2 (06:25→19:24)
[2019-05-27 07:17] LABS: INR-International Normal Ratio 1.1; PTT 62.3 SEC (22.9-36.1)
[2019-05-27 07:21] LABS: Anion Gap 13 mmol/L (10-20); BUN (Urea Nitrogen) 6 mg/dL (8.4-25.7); Calc. Creatinine Clearance 164 mL/min (70-130); Calcium 8.9 mg/dL (7.8-10.44); Carbon Dioxide 28 mmol/L (22-29); Chloride 94 mmol/L (98-107); Estimated GFR-MDRD 82; Glucose 111 mg/dL (70-105); Potassium 3.4 mmol/L (3.5-5.1); Sodium 132 mmol/L (136-145)
[2019-05-27] MEDS: Heparin 10,000 UNITS/ 10 ML VIAL SLOW IVP SCH (08:50)
[2019-05-27] MEDS: Lidocaine 5% Patch TD SCH (08:53)
[2019-05-27] MEDS: Potassium Chloride 20 MEQ TAB PO SCH ×2 (08:54→20:19)
[2019-05-27] MEDS: Senokot S 8.6-50 MG TAB PO SCH ×2 (08:54→20:20)
[2019-05-27] MEDS: hydrALAZINE 25 MG TAB PO SCH ×3 (08:54→20:19)
[2019-05-27] MEDS ORDERED: Furosemide 20 MG/2 ML VIAL SLOW IVP SCH (09:00)
--- NOTE | 2019-05-27 11:37 | PDOC.PN ---
- Subjective Encounter Start Date: 05/27/19 Encounter Start Time: 11:35 Mr. Clay was seen today in follow-up of Pulmonary Embolus. He complains of 2 weeks of poor appetite, and chronic nausea. He continues to feel short of breath, and has the feeling that he can not take in a deep breath. - Objective Resuscitation Status - Order Detail: 05/24/19 20:27 Resuscitation Status Routine Co-Sign Provider: Resuscitation Status: FULL: Full Resuscitation MAR Reviewed: Yes Vital Signs & Weight: Vital Signs (12 hours) Temp Pulse Resp BP BP Pulse Ox 05/27/19 08:50 100 05/27/19 07:51 97.9 F 101 H 22 H 135/72 135/72 100 05/27/19 03:59 98.2 F 98 22 H 136/68 92 L Weight Admit Weight 304 lb 3.2 oz Weight 306 lb 5 oz I&O: 05/26/19 05/27/19 05/28/19 06:59 06:59 06:59 Intake Total 960 1358 Balance 960 1358 Result Diagrams: 05/26/19 23:34 05/27/19 06:50 Phys Exam - Physical Examination HEENT: PERRLA Respiratory: wheezing present Cardiovascular: RRR, no significant murmur, no rub Gastrointestinal: soft, non-tender, no distention, positive bowel sounds Musculoskeletal: pulses present, edema present + trace pedal edema in both lower extremities Dx/Plan (1) Acute pulmonary embolus Code(s): I26.99 - OTHER PULMONARY EMBOLISM WITHOUT ACUTE COR PULMONALE Status : Acute (2) HTN (hypertension) Code(s): I10 - ESSENTIAL (PRIMARY) HYPERTENSION Status: Chronic Qualifiers: Hypertension type: essential hypertension Qualified Code(s): I10 - Essential (primary) hypertension (3) Alcohol abuse Code(s): F10.10 - ALCOHOL ABUSE, UNCOMPLICATED Status: Chronic (4) Hypokalemia Code(s): E87.6 - HYPOKALEMIA Status: Acute - Plan * Acute PE- continue Heparin and Coumadin. Will increase his dose of coumadin tonight ( INR is still 1.1) * Chronic nausea- ? etiology- will continue to observe- he may need HIDA scan if this continues * HTN - blood pressure is stable * Hypokalemia- continue to replace * Ambulate
--- NOTE | 2019-05-27 12:44 | PRG ---
DATE OF SERVICE: 05/27/2019 SUBJECTIVE: This morning, he is awake and responsive. Less short of breath. He is walking. OBJECTIVE: VITAL SIGNS: Saturations are 90% on a liter, respiratory rate 20, pulse 104, temperature 97, and blood pressure 135/70. CHEST: Decreased breath sounds. No wheezing. CARDIAC: Normal S1 and S2. No gallops. ABDOMEN: No masses. IMPRESSION: Morbid obesity, pulmonary embolism, and probably sleep apnea. PLAN: He will be started on Coumadin. It is going to take minimal 4 to 5 days to get his PT/INR in the therapeutic range. Continue PT supportive care. We will follow. Job ID: [id number]
[2019-05-27 14:57] LABS: PTT 130.3 SEC (22.9-36.1)
[2019-05-27] MEDS: Ondansetron ODT 4 MG TAB PO PRN (15:12)
[2019-05-27] MEDS: Warfarin Sodium 10 MG TAB PO SCH (17:51)
[2019-05-27] MEDS: Lidocaine Patch Removal 1 EACH TOP SCH (19:25)
[2019-05-28] MEDS: Acetaminophen 325 MG TAB PO PRN ×3 (01:04→17:41)
[2019-05-28] MEDS: Heparin 10,000 UNITS/ 10 ML VIAL SLOW IVP SCH ×2 (01:17→18:23)
[2019-05-28 02:29] LABS: Actual Bicarbonate (HCO3a) 21.7 mEq/L (22-28); Analyzer IN Cardio OR; Base Excess (BEa) -3.3 mEq/L (-2.0 to +3.0); CO2 Tension 38.8 mmHg (35.0-45.0); Calcium, Ionized 1.07 mmol/L (1.12-1.30); Hemoglobin (Hb) 12.7 g/dL (14.0-18.0); O2 Tension (PaO2) 469.5 mmHg (> 80.0); Potassium - ABG Lab 4.55 mmol/L (3.70-5.30); pH, Arterial 7.37 (7.35-7.45)
[2019-05-28 02:30] LABS: Puncture Site RRA
[2019-05-28] MEDS: Heparin 25,000 units/D5W 500 ML IVPB SCH ×2 (05:36→20:47)
[2019-05-28 08:03] LABS: Anion Gap 15 mmol/L (10-20); BUN (Urea Nitrogen) 4 mg/dL (8.4-25.7); Calc. Creatinine Clearance 177 mL/min (70-130); Calcium 9.3 mg/dL (7.8-10.44); Carbon Dioxide 29 mmol/L (22-29); Chloride 93 mmol/L (98-107); Estimated GFR-MDRD 90; Glucose 109 mg/dL (70-105); Potassium 3.5 mmol/L (3.5-5.1); Sodium 133 mmol/L (136-145)
[2019-05-28 08:04] LABS: INR-International Normal Ratio 1.5
[2019-05-28 08:16] LABS: PTT 203.2 SEC (22.9-36.1)
[2019-05-28] MEDS: hydrALAZINE 25 MG TAB PO SCH ×3 (09:10→20:43)
[2019-05-28] MEDS: Potassium Chloride 20 MEQ TAB PO SCH ×2 (09:10→20:43)
[2019-05-28] MEDS: Senokot S 8.6-50 MG TAB PO SCH ×2 (09:10→20:43)
[2019-05-28] MEDS: Lidocaine 5% Patch TD SCH (09:12)
--- NOTE | 2019-05-28 11:56 | PRG ---
DATE OF SERVICE: 05/28/2019 SUBJECTIVE: Arpan Clay is a morbidly obese gentleman. This morning, he said he is having difficulty breathing. LABORATORY DATA: He had a blood gas done in the morning, which shows , pCO2 38, pH 7.37, on 2 L nasal O2. His lytes are normal. OBJECTIVE: CHEST: Reveals decreased breath sounds. No wheezing. CARDIAC: Normal S1, S2. No gallop. ABDOMEN: No masses. IMPRESSION: 1. Dyspnea. 2. Morbid obesity. 3. Sleep apnea. 4. Pulmonary embolism, on Coumadin and heparin. It is unclear why he is having so much difficulty breathing. I do not hear much wheezing in his chest. His gases were adequate. I may add some Dulera to his present treatment. Job ID: [id number]
--- NOTE | 2019-05-28 12:17 | RAD ---
XR Chest 1 View Portable HISTORY: Shortness of breath COMPARISON: 05/24/2019 study FINDINGS: Heart size and mediastinum are within normal limits. The lungs are clear of infiltrates. No significant bony findings. IMPRESSION: No active intrathoracic disease. Stable chest.
--- NOTE | 2019-05-28 12:21 | PDOC.PN ---
- Subjective Encounter Start Date: 05/28/19 Encounter Start Time: 12:19 Mr. Clay was seen today in follow-up of bilateral PE. He says he does not feel any better today than when he was admitted. He continues to feel extremely short of breath. His oxygen saturations however have been close to 100%. - Objective Resuscitation Status - Order Detail: 05/24/19 20:27 Resuscitation Status Routine Co-Sign Provider: Resuscitation Status: FULL: Full Resuscitation MAR Reviewed: Yes Vital Signs & Weight: Vital Signs (12 hours) Temp Pulse Resp BP BP Pulse Ox 05/28/19 09:10 118 H 159/63 H 05/28/19 07:45 99.4 F 118 H 20 159/63 H 159/63 H 96 05/28/19 03:58 103 H 20 98 05/28/19 03:09 98.4 F 79 22 H 123/89 93 L Weight Admit Weight 304 lb 3.2 oz Weight 305 lb 4 oz I&O: 05/27/19 05/28/19 05/29/19 06:59 06:59 06:59 Intake Total 1358 1046.4 Balance 1358 1046.4 Result Diagrams: 05/26/19 23:34 05/28/19 07:35 Phys Exam - Physical Examination HEENT: PERRLA + mild wheeze, no rales or rhonchi Cardiovascular: RRR, no significant murmur, no rub Gastrointestinal: soft, non-tender, no distention, positive bowel sounds Musculoskeletal: no edema Dx/Plan (1) Acute pulmonary embolus Code(s): I26.99 - OTHER PULMONARY EMBOLISM WITHOUT ACUTE COR PULMONALE Status : Acute (2) HTN (hypertension) Code(s): I10 - ESSENTIAL (PRIMARY) HYPERTENSION Status: Chronic Qualifiers: Hypertension type: essential hypertension Qualified Code(s): I10 - Essential (primary) hypertension (3) Alcohol abuse Code(s): F10.10 - ALCOHOL ABUSE, UNCOMPLICATED Status: Chronic - Plan * Acute respiratory failure- Due to PE- continue Heparin and coumadin. discussed with Dr. Almendarez- will check a chest X-ray, and he plans to add steroids as well * HTN- blood pressure is borderline elevated-but this could be exacerbated by respiratory distress- will monitor * Severe morbid obesity, with primarily central obesity- diet has been discussed , and his body habitus is likely compromising his breathing.
[2019-05-28] MEDS: methylPREDNISolone Sod Succ 40 MG VIAL IVP SCH ×2 (13:06→17:41)
[2019-05-28] MEDS: Warfarin Sodium 10 MG TAB PO SCH (17:41)
[2019-05-28] MEDS: Mometasone/Formoterol 120 PUFF INHALER INH SCH (20:07)
[2019-05-28] MEDS: Lidocaine Patch Removal 1 EACH TOP SCH (20:45)
[2019-05-28 23:52] LABS: Hemoglobin 12.2 g/dL (14.0-18.0); Platelet Count 258 thou/uL (130-400)
[2019-05-29] MEDS: methylPREDNISolone Sod Succ 40 MG VIAL IVP SCH ×3 (02:06→12:47)
[2019-05-29 02:18] LABS: PTT 229.9 SEC (22.9-36.1)
[2019-05-29 02:39] LABS: Anion Gap 18 mmol/L (10-20); BUN (Urea Nitrogen) 4 mg/dL (8.4-25.7); Calc. Creatinine Clearance 167 mL/min (70-130); Calcium 9.3 mg/dL (7.8-10.44); Carbon Dioxide 21 mmol/L (22-29); Chloride 92 mmol/L (98-107); Estimated GFR-MDRD 84; Glucose 166 mg/dL (70-105); Potassium 4.7 mmol/L (3.5-5.1); Sodium 126 mmol/L (136-145)
[2019-05-29] MEDS: Mometasone/Formoterol 120 PUFF INHALER INH SCH ×2 (06:48→19:51)
[2019-05-29] MEDS: hydrALAZINE 25 MG TAB PO SCH ×3 (09:14→20:29)
[2019-05-29] MEDS: Senokot S 8.6-50 MG TAB PO SCH ×2 (09:15→20:29)
[2019-05-29] MEDS: Lidocaine 5% Patch TD SCH (09:16)
--- NOTE | 2019-05-29 12:20 | PDOC.PN ---
- Subjective Encounter Start Date: 05/29/19 Encounter Start Time: 12:18 Mr. Clay was seen today in follow-up of PE and dyspnea. He continues to have some dyspnea. - Objective Resuscitation Status - Order Detail: 05/24/19 20:27 Resuscitation Status Routine Co-Sign Provider: Resuscitation Status: FULL: Full Resuscitation MAR Reviewed: Yes Vital Signs & Weight: Vital Signs (12 hours) Temp Pulse Resp BP BP Pulse Ox 05/29/19 07:27 98.6 F 106 H 24 H 134/63 134/63 97 05/29/19 02:55 98.9 F 113 H 20 148/66 H 93 L Weight Admit Weight 304 lb 3.2 oz Weight 308 lb 4.8 oz I&O: 05/28/19 05/29/19 05/30/19 06:59 06:59 06:59 Intake Total 1046.4 1240 Balance 1046.4 1240 Result Diagrams: 05/28/19 23:50 05/29/19 01:40 Phys Exam - Physical Examination HEENT: PERRLA Respiratory: wheezing present + bilateral wheezing, intermittent Cardiovascular: RRR, no significant murmur, no rub Gastrointestinal: soft, non-tender, no distention, positive bowel sounds Musculoskeletal: no edema, pulses present Dx/Plan (1) Acute pulmonary embolus Code(s): I26.99 - OTHER PULMONARY EMBOLISM WITHOUT ACUTE COR PULMONALE Status : Acute (2) HTN (hypertension) Code(s): I10 - ESSENTIAL (PRIMARY) HYPERTENSION Status: Chronic Qualifiers: Hypertension type: essential hypertension Qualified Code(s): I10 - Essential (primary) hypertension (3) Alcohol abuse Code(s): F10.10 - ALCOHOL ABUSE, UNCOMPLICATED Status: Chronic - Plan * Acute PE- continue heparin and counadin. INR is pending * Severe dyspnea- ? etiology- continue with Duonebs as needed, as well as Steroids * Continue BIPAP as needed * HTN- blood pressure is stable .
[2019-05-29 12:49] LABS: Prothrombin Time 22.9 SEC (12.0-14.7)
[2019-05-29] MEDS ORDERED: Furosemide 20 MG/2 ML VIAL SLOW IVP SCH (16:45)
--- NOTE | 2019-05-29 16:51 | PRG ---
DATE OF SERVICE: 05/29/2019 SERVICE: Pulmonary Medicine. INTERVAL HISTORY: The patient is doing okay from Respiratory standpoint. He indicates he feels a little bit better this morning. Denies any current fevers, chills, nausea, vomiting, or diarrhea. Otherwise, there has been no interval change to his condition. With minimal exertion, he has horrendous dyspnea. PHYSICAL EXAMINATION: VITAL SIGNS: Afebrile, pulse 100, blood pressure 114/61, respirations 25, and saturation 100% on 2 L nasal cannula. GENERAL: The patient is awake and alert, in no apparent distress. LUNGS: Decent air entry. I do not hear a prolonged expiratory phase or wheezing. Crackles are present. HEART: Normal rate and regular. ABDOMEN: Soft, nontender, nondistended. Bowel sounds are positive. MUSCULOSKELETAL: No cyanosis or clubbing. There is trace to 1+ pitting in the bilateral lower extremities. NEUROLOGIC: Grossly nonfocal. LABORATORIES: Hemoglobin 12.2 and platelets 258,000. INR 2.0. The pH 7.37, pCO2 of 38, PO2 of 500, which is not physiologically possible on 2 L nasal cannula. Creatinine 0.92. Sodium is downtrending to 126. Basic metabolic profile is otherwise unremarkable. Serum osmolality 273. IMAGING: Chest x-ray demonstrates no acute intrathoracic disease. ASSESSMENT: 1. Acute hypoxic respiratory failure. 2. Acute pulmonary embolism with large clot burden, though no right ventricular heart strain at the time. 3. Alcohol abuse. 4. Fatty liver disease. DISCUSSION AND PLAN: I will give the patient dose of Lasix today and tomorrow. I will switch his steroids over to p.o. and limit him to a 5-day course. We will continue inhaled medications to promote bronchodilators. I will repeat a troponin and BNP tomorrow morning. If these things are up trending, we may need to consider lytic therapy. Job ID: [id number]
[2019-05-29] MEDS: Warfarin Sodium 10 MG TAB PO SCH (17:35)
[2019-05-29] MEDS: Lidocaine Patch Removal 1 EACH TOP SCH (20:34)
[2019-05-29] MEDS: Heparin 25,000 units/D5W 500 ML IVPB SCH (23:06)
[2019-05-30] MEDS: Furosemide 20 MG/2 ML VIAL SLOW IVP SCH (05:42)
[2019-05-30 06:33] LABS: INR-International Normal Ratio 2.4; Prothrombin Time 26.4 SEC (12.0-14.7)
[2019-05-30 06:35] LABS: PTT 111.6 SEC (22.9-36.1)
[2019-05-30] MEDS: Mometasone/Formoterol 120 PUFF INHALER INH SCH ×2 (06:35→19:12)
[2019-05-30 07:11] LABS: Anion Gap 14 mmol/L (10-20); BUN (Urea Nitrogen) 11 mg/dL (8.4-25.7); Calc. Creatinine Clearance 169 mL/min (70-130); Calcium 9.4 mg/dL (7.8-10.44); Carbon Dioxide 28 mmol/L (22-29); Chloride 93 mmol/L (98-107); Estimated GFR-MDRD 83; Glucose 129 mg/dL (70-105); Magnesium 1.6 mg/dL (1.6-2.6); Potassium 4.4 mmol/L (3.5-5.1); Sodium 131 mmol/L (136-145)
[2019-05-30 07:14] LABS: Troponin I Less than 0.010 ng/mL (< 0.028)
[2019-05-30] MEDS: hydrALAZINE 25 MG TAB PO SCH ×3 (08:59→20:55)
[2019-05-30] MEDS: Senokot S 8.6-50 MG TAB PO SCH ×2 (08:59→20:55)
[2019-05-30] MEDS: Lidocaine 5% Patch TD SCH (09:00)
[2019-05-30] MEDS: Ondansetron ODT 4 MG TAB PO PRN (09:03)
[2019-05-30] MEDS ORDERED: Bisacodyl 10 MG SUPP PR PRN (10:19)
--- NOTE | 2019-05-30 10:40 | PDOC.PN ---
- Subjective Encounter Start Date: 05/30/19 Encounter Start Time: 09:15 Subjective: sob is better, has ambulated around 300ft in hallway yest -: daughter and in room -: no chest pain, is doing well with i.spirometry - Objective Resuscitation Status - Order Detail: 05/24/19 20:27 Resuscitation Status Routine Co-Sign Provider: Resuscitation Status: FULL: Full Resuscitation MAR Reviewed: Yes Vital Signs & Weight: Vital Signs (12 hours) Temp Pulse Resp BP BP Pulse Ox 05/30/19 08:59 98 05/30/19 07:16 97.8 F 102 H 21 H 128/61 128/61 98 05/30/19 03:33 98.4 F 93 20 140/76 95 05/29/19 23:58 97.8 F 102 H 20 139/76 95 05/29/19 22:40 99 20 95 Weight Admit Weight 304 lb 3.2 oz Weight 311 lb 8 oz I&O: 05/29/19 05/30/19 05/31/19 06:59 06:59 06:59 Intake Total 1240 1752 Output Total 350 Balance 1240 1402 Result Diagrams: 05/28/19 23:50 05/30/19 05:59 Phys Exam - Physical Examination HEENT: PERRLA, moist MMs Neck: no JVD, supple Respiratory: no wheezing, no rales rhonchi+ Cardiovascular: RRR, no significant murmur Gastrointestinal: soft, non-tender, positive bowel sounds Musculoskeletal: pulses present, edema present Neurological: non-focal, moves all 4 limbs Psychiatric: normal affect, A&O x 3 Dx/Plan (1) Acute pulmonary embolus Code(s): I26.99 - OTHER PULMONARY EMBOLISM WITHOUT ACUTE COR PULMONALE Status : Acute (2) Acute respiratory failure with hypoxia Code(s): J96.01 - ACUTE RESPIRATORY FAILURE WITH HYPOXIA Status: Acute (3) ROSALIA (obstructive sleep apnea) Code(s): G47.33 - OBSTRUCTIVE SLEEP APNEA (ADULT) (PEDIATRIC) Status: Suspected (4) Obesity hypoventilation syndrome Code(s): E66.2 - MORBID (SEVERE) OBESITY WITH ALVEOLAR HYPOVENTILATION Status : Suspected (5) Alcohol abuse Code(s): F10.10 - ALCOHOL ABUSE, UNCOMPLICATED Status: Chronic (6) Iron deficiency anemia Code(s): D50.9 - IRON DEFICIENCY ANEMIA, UNSPECIFIED Status: Chronic Qualifiers: Iron deficiency anemia type: unspecified iron deficiency Qualified Code(s) : D50.9 - Iron deficiency anemia, unspecified (7) HTN (hypertension) Code(s): I10 - ESSENTIAL (PRIMARY) HYPERTENSION Status: Chronic Qualifiers: Hypertension type: essential hypertension Qualified Code(s): I10 - Essential (primary) hypertension (8) Morbid obesity with BMI of 45.0-49.9, adult Code(s): E66.01 - MORBID (SEVERE) OBESITY DUE TO EXCESS CALORIES; Z68.42 - BODY MASS INDEX (BMI) 45.0-49.9, ADULT Status: Chronic - Plan is on both heparin drip and coumadin, may dc heparin drip -: inr is 2.4 this am -: counselled to ambulate in hallway, oob to chair, outpt sleep stuidies -: continue lasix, dulera, nebs, hydralazine -: hemostable. D/w , pt and daughter at bedside * . Review of Systems - Medications/Allergies Allergies/Adverse Reactions: Allergies Allergy/AdvReac Type Severity Reaction Status Date / Time No Known Allergies Allergy Verified 05/24/19 19:55 Medications: Current Medications Acetaminophen (Tylenol) 650 mg PO Q4H PRN PRN Reason: Headache/Fever/Mild Pain (1-3) Last Admin: 05/28/19 17:41 Dose: 650 mg Acetaminophen (Tylenol) [address] Q4H PRN PRN Reason: Headache/Fever/Mild Pain (1-3) Albuterol/Ipratropium (Duoneb) 3 ml NEB [id number] PRN PRN Reason: SOB &/or Wheezing Last Admin: 05/27/19 14:40 Dose: 3 ml Bisacodyl (Dulcolax) [address] Q8H PRN PRN Reason: Constipation Clonidine (Catapres) 0.1 mg PO Q4H PRN PRN Reason: SBP Greater Than 170 Furosemide (Lasix) 20 mg SLOW IVP 0600 [facility] Last Admin: 05/30/19 05:42 Dose: 20 mg Heparin Sodium (Porcine) (Heparin 1,000 Units/Ml (10 Ml)) 0 units SLOW IVP [facility] [place]; Protocol Last Admin: 06/30/19 18:23 Dose: 11,048 unit Hydralazine HCl (Apresoline) 25 mg PO TID [facility] Last Admin: 05/30/19 08:59 Dose: 25 mg Hydralazine HCl (Apresoline) 10 mg SLOW IVP Q4H PRN PRN Reason: SBP > 180 and HR < 70 Heparin Sodium/Dextrose (Heparin 25,000 Units/D5w 500 Ml) 500 mls @ 0 mls/hr IVPB INF [place]; Protocol Last Admin: 05/29/19 23:06 Dose: 500 mls Lidocaine (Lidoderm 5% Patch) 1 patch TD DAILY [facility] Last Admin: 05/30/19 09:00 Dose: Not Given Miscellaneous Medication (Lidocaine Patch Removal) 1 each TOP 2100 [facility] Last Admin: 05/29/19 20:34 Dose: Not Given Mometasone Furoate/Formoterol Fumar (Dulera 200 Mcg/5 Mcg Inhaler) 2 puff INH BID-RT [facility] Last Admin: 05/30/19 06:35 Dose: 2 puff Ondansetron HCl (Zofran Odt) 4 mg PO Q6H PRN PRN Reason: Nausea/Vomiting Last Admin: 05/30/19 09:03 Dose: 4 mg Polyethylene Glycol (Miralax) 17 gm PO DAILY [facility] Senna/Docusate Sodium (Senokot S) 2 tab PO BID [facility] Last Admin: 05/30/19 08:59 Dose: 2 tab Sodium Biphosphate/Sodium Phosphate (Fleet Enema) [address] [place] Sodium Chloride (Flush - Normal Saline) 10 ml IVF Q12HR PRN PRN Reason: Saline Flush Last Admin: 05/29/19 20:30 Dose: 10 ml Sodium Chloride (Flush - Normal Saline) 10 ml IVF PRN PRN PRN Reason: Saline Flush Warfarin Sodium (Coumadin) 10 mg PO 1700 [place] Last Admin: 05/29/19 17:35 Dose: 10 mg
[2019-05-30] MEDS: Heparin 25,000 units/D5W 500 ML IVPB SCH (10:46)
[2019-05-30] MEDS ORDERED: Fleet Enema 133 ML BOT PR SCH (12:30)
[2019-05-30] MEDS: Warfarin Sodium 10 MG TAB PO SCH (16:00)
--- NOTE | 2019-05-30 16:20 | PRG ---
DATE OF SERVICE: 05/30/2019 SERVICE: Pulmonary Medicine. INTERVAL HISTORY: The patient is doing really well from Respiratory standpoint. Breathing comfortably. He indicates that his shortness of breath has actually improved over the last 24 hours. He denies any fevers or chills. He is not coughing nearly as much. Whenever he is without his oxygen, he continues to have a little bit increased work of breathing. That being said, he is suggesting me that his breathing is close to baseline once again. PHYSICAL EXAMINATION: VITAL SIGNS: Afebrile, pulse 119, blood pressure 143/71, respirations are 18, and saturation 99% on 2 L nasal cannula. On room air, with deep breathing, it is 89 % to 90%. HEENT: Normocephalic and atraumatic. Sclerae white. Conjunctivae pink. Oral mucosa is moist without lesions. LUNGS: Decent air entry. There is a prolonged expiratory phase and wheezing present. The crackles are improved. HEART: Tachycardic. Regular. ABDOMEN: Soft, nontender, and nondistended. Bowel sounds are positive. MUSCULOSKELETAL: No cyanosis or clubbing. Trace to 1+ pitting edema is present , but improved. : No Noonan. NEUROLOGIC: Nonfocal. LABORATORY DATA: Hemoglobin 12.2 and INR 2.4. Troponin remains unremarkable. BNP is ever so slightly up trending to 147. Sodium has improved to 131. Basic metabolic profile is otherwise unremarkable. Bicarb is 28, chloride 93. ASSESSMENT: 1. Acute hypoxic respiratory failure. 2. Acute pulmonary embolism with large clot burden. 3. Alcohol abuse. 4. Fatty liver disease. DISCUSSION AND PLAN: His INR is therapeutic x2 days. As such, we will wean away the heparin. We can repeat an INR tomorrow morning. If he remains therapeutic , he can be considered for transition home provided he is tolerating room air. If he is not, we may need to try to arrange oxygen in the outpatient setting. The troponin remains unremarkable. The BNP is slightly decreased, but his sodiums are starting to improve, which is a very reassuring sign. We will continue to gently diurese him through time. Pulmonary/Critical Care will continue to follow along for now. Job ID: [id number] [facility]
[2019-05-30] MEDS ORDERED: Magnesium Sulfate 2 GM in Sodium Chloride 0.9% 100 ML IVPB SCH (17:00)
[2019-05-30] MEDS ORDERED: Magnesium 2 GM/50 ML 2 GM in Premix Bag 1 BAG IVPB SCH (18:00)
[2019-05-30] MEDS: Lidocaine Patch Removal 1 EACH TOP SCH (20:55)
[2019-05-30 22:14] LABS: Hemoglobin 10.3 g/dL (14.0-18.0); Platelet Count 307 thou/uL (130-400)
[2019-05-31] MEDS: Acetaminophen 325 MG TAB PO PRN ×2 (00:56→06:16)
[2019-05-31 05:14] LABS: INR-International Normal Ratio 2.9; Prothrombin Time 30.4 SEC (12.0-14.7)
[2019-05-31 05:34] LABS: Anion Gap 12 mmol/L (10-20); BUN (Urea Nitrogen) 10 mg/dL (8.4-25.7); Calc. Creatinine Clearance 170 mL/min (70-130); Calcium 8.7 mg/dL (7.8-10.44); Carbon Dioxide 32 mmol/L (22-29); Chloride 97 mmol/L (98-107); Estimated GFR-MDRD 87; Glucose 99 mg/dL (70-105); Magnesium 2.6 mg/dL (1.6-2.6); Sodium 137 mmol/L (136-145)
[2019-05-31] MEDS: Furosemide 20 MG/2 ML VIAL SLOW IVP SCH ×2 (06:16→14:42)
[2019-05-31] MEDS: Mometasone/Formoterol 120 PUFF INHALER INH SCH ×2 (07:42→19:30)
[2019-05-31] MEDS: Lidocaine 5% Patch TD SCH (09:02)
[2019-05-31] MEDS: Polyethylene Glycol 3350 17 GM Packet PO SCH (09:02)
[2019-05-31] MEDS: hydrALAZINE 25 MG TAB PO SCH ×3 (09:02→21:00)
[2019-05-31] MEDS: Senokot S 8.6-50 MG TAB PO SCH ×2 (09:03→21:01)
--- NOTE | 2019-05-31 12:25 | PDOC.PN ---
- Subjective Encounter Start Date: 05/31/19 Encounter Start Time: 10:15 Subjective: breathing better -: is ambulating in hallway with oxygen - Objective Resuscitation Status - Order Detail: 05/24/19 20:27 Resuscitation Status Routine Co-Sign Provider: Resuscitation Status: FULL: Full Resuscitation MAR Reviewed: Yes Vital Signs & Weight: Vital Signs (12 hours) Temp Pulse Resp BP BP Pulse Ox 05/31/19 09:56 102 H 18 95 05/31/19 09:02 108 H 05/31/19 07:42 109 H 18 90 L 05/31/19 04:00 135/69 05/31/19 03:37 97.4 F L 106 H 22 H 135/69 93 L 05/31/19 02:00 104 H 22 H 95 Weight Admit Weight 304 lb 3.2 oz Weight 300 lb I&O: 05/30/19 05/31/19 06/01/19 06:59 06:59 06:59 Intake Total 1752 1866.55 Output Total 350 1850 Balance 1402 16.55 Result Diagrams: 05/30/19 21:46 05/31/19 04:21 Phys Exam - Physical Examination HEENT: PERRLA, moist MMs Neck: no JVD, supple Respiratory: no wheezing, no rales Cardiovascular: RRR, no significant murmur Gastrointestinal: soft, non-tender, positive bowel sounds Musculoskeletal: pulses present, edema present Neurological: non-focal, moves all 4 limbs Psychiatric: normal affect, A&O x 3 Dx/Plan (1) Acute pulmonary embolus Code(s): I26.99 - OTHER PULMONARY EMBOLISM WITHOUT ACUTE COR PULMONALE Status : Acute (2) Acute respiratory failure with hypoxia Code(s): J96.01 - ACUTE RESPIRATORY FAILURE WITH HYPOXIA Status: Acute (3) ROSALIA (obstructive sleep apnea) Code(s): G47.33 - OBSTRUCTIVE SLEEP APNEA (ADULT) (PEDIATRIC) Status: Suspected (4) Obesity hypoventilation syndrome Code(s): E66.2 - MORBID (SEVERE) OBESITY WITH ALVEOLAR HYPOVENTILATION Status : Suspected (5) Alcohol abuse Code(s): F10.10 - ALCOHOL ABUSE, UNCOMPLICATED Status: Chronic (6) Iron deficiency anemia Code(s): D50.9 - IRON DEFICIENCY ANEMIA, UNSPECIFIED Status: Chronic Qualifiers: Iron deficiency anemia type: unspecified iron deficiency Qualified Code(s) : D50.9 - Iron deficiency anemia, unspecified (7) HTN (hypertension) Code(s): I10 - ESSENTIAL (PRIMARY) HYPERTENSION Status: Chronic Qualifiers: Hypertension type: essential hypertension Qualified Code(s): I10 - Essential (primary) hypertension (8) Morbid obesity with BMI of 45.0-49.9, adult Code(s): E66.01 - MORBID (SEVERE) OBESITY DUE TO EXCESS CALORIES; Z68.42 - BODY MASS INDEX (BMI) 45.0-49.9, ADULT Status: Chronic - Plan increase lasix to bid iv -: dc plan in 24hrs -: wean oxygen to spo2 of 90% -: continue coumadin, inr is therapeutic -: he will need to f/u [facility] for coumadin levels * . d/w case mgmt he might require home oxygen. Has life threatening obesity with bmi of 45. sob is multifactorial. Review of Systems - Medications/Allergies Allergies/Adverse Reactions: Allergies Allergy/AdvReac Type Severity Reaction Status Date / Time No Known Allergies Allergy Verified 05/24/19 19:55 Medications: Current Medications Acetaminophen (Tylenol) 650 mg PO Q4H PRN PRN Reason: Headache/Fever/Mild Pain (1-3) Last Admin: 05/31/19 06:16 Dose: 650 mg Acetaminophen (Tylenol) 650 mg NV Q4H PRN PRN Reason: Headache/Fever/Mild Pain (1-3) Albuterol/Ipratropium (Duoneb) 3 ml NEB [id number] PRN PRN Reason: SOB &/or Wheezing Last Admin: 05/31/19 09:56 Dose: 3 ml Albuterol/Ipratropium (Duoneb) 3 ml NEB [id number] [place] Bisacodyl (Dulcolax) 10 mg NV Q8H PRN PRN Reason: Constipation Clonidine (Catapres) 0.1 mg PO Q4H PRN PRN Reason: SBP Greater Than 170 Furosemide (Lasix) 20 mg SLOW IVP 0600,1400 [facility] Heparin Sodium (Porcine) (Heparin 1,000 Units/Ml (10 Ml)) 0 units SLOW IVP ASDIR [facility]; Protocol Last Admin: 05/28/19 18:23 Dose: 11,048 unit Hydralazine HCl (Apresoline) 25 mg PO TID [facility] Last Admin: 05/31/19 09:02 Dose: 25 mg Hydralazine HCl (Apresoline) 10 mg SLOW IVP Q4H PRN PRN Reason: SBP > 180 and HR < 70 Lidocaine (Lidoderm 5% Patch) 1 patch TD DAILY [facility] Last Admin: 05/31/19 09:02 Dose: 1 patch Miscellaneous Medication (Lidocaine Patch Removal) 1 each TOP 2100 [facility] Last Admin: 05/30/19 20:55 Dose: Not Given Mometasone Furoate/Formoterol Fumar (Dulera 200 Mcg/5 Mcg Inhaler) 2 puff INH BID-RT [facility] Last Admin: 05/31/19 07:42 Dose: 2 puff Ondansetron HCl (Zofran Odt) 4 mg PO Q6H PRN PRN Reason: Nausea/Vomiting Last Admin: 05/30/19 09:03 Dose: 4 mg Polyethylene Glycol (Miralax) 17 gm PO DAILY [facility] Last Admin: 05/31/19 09:02 Dose: 17 gm Senna/Docusate Sodium (Senokot S) 2 tab PO BID [facility] Last Admin: 05/31/19 09:03 Dose: 2 tab Sodium Chloride (Flush - Normal Saline) 10 ml IVF Q12HR PRN PRN Reason: Saline Flush Last Admin: 05/29/19 20:30 Dose: 10 ml Sodium Chloride (Flush - Normal Saline) 10 ml IVF PRN PRN PRN Reason: Saline Flush Warfarin Sodium (Coumadin) 10 mg PO 1700 [facility] Last Admin: 05/30/19 16:00 Dose: 10 mg
[2019-05-31 13:13] VITALS: BMI 45.6
[2019-05-31] MEDS ORDERED: predniSONE 20 MG TAB PO SCH (13:45)
--- NOTE | 2019-05-31 14:24 | PRG ---
DATE OF SERVICE: 05/31/2019 SERVICE: Pulmonary Medicine. INTERVAL HISTORY: The patient is doing fine from respiratory standpoint. Breathing comfortably. He has no complaints of chest pain, fevers, cough, nausea, or vomiting. His shortness of breath continues to improve a little bit day-by- day. At this point, his biggest complaint is soreness in the back of his throat. He coughs because of an irritation back there, but he has a hard time liberating the mucus. We talked in general about acid reflux, and discharge from the nose. He does endorse multiple features consistent with reflux. We talked about precautions, which he is going to start. PHYSICAL EXAMINATION: VITAL SIGNS: Afebrile. Pulse 108, blood pressure 124/70, respirations 18, saturation 95% on 1.5 L nasal cannula. GENERAL: The patient is awake and alert, in no apparent distress. LUNGS: Decent air entry. There is a prolonged expiratory phase as well as wheezing. Crackles are noted in the bibasilar regions. HEART: Normal rate, regular. NEUROLOGIC: Grossly nonfocal. LABORATORY DATA: Hemoglobin 10.3, hematocrit 32.8. INR 2.9. pH 7.37, pCO2 38 , PO2 500. Creatinine 0.89. Basic metabolic profile is otherwise unremarkable. Sodium has returned to the normal limits. Magnesium 2.6. ASSESSMENT: 1. Acute hypoxic respiratory failure, improving. 2. Acute pulmonary embolism with large clot burden, though no signs of RV strain. 3. Acute bronchitis. 4. Alcohol abuse. 5. Fatty liver disease. 6. Obstructive sleep apnea, suspected. DISCUSSION AND PLAN: The patient's INR has been therapeutic for 2 days. We will continue to wean oxygen as tolerated. Provided that he has oxygen at home, he is currently stable for transition out of the hospital. We will enlist him with a walking program. I will repeat a BNP as well some chemistries tomorrow morning. We will continue to gently diurese him through time until he gets a little closer to euvolemia, which he is getting close to. Nebulized medications, steroids, and antibiotics will be continued to completion. I will empirically put him on BiPAP at 15/10 this evening. Ultimately, he would benefit from an outpatient polysomnogram so that we can arrange noninvasive ventilation in the outpatient setting, but that will prove difficult because the patient lacks funding. Job ID: [id number] EVELYN
[2019-05-31] MEDS: Warfarin Sodium 5 MG TAB PO SCH (16:42)
[2019-05-31] MEDS: Lidocaine Patch Removal 1 EACH TOP SCH (21:01)
[2019-06-01] MEDS: Furosemide 20 MG/2 ML VIAL SLOW IVP SCH ×2 (05:46→14:14)
[2019-06-01 07:44] LABS: INR-International Normal Ratio 2.6; Prothrombin Time 27.9 SEC (12.0-14.7)
[2019-06-01 07:52] LABS: Anion Gap 14 mmol/L (10-20); BUN (Urea Nitrogen) 9 mg/dL (8.4-25.7); Calc. Creatinine Clearance 169 mL/min (70-130); Calcium 9.5 mg/dL (7.8-10.44); Carbon Dioxide 28 mmol/L (22-29); Chloride 102 mmol/L (98-107); Estimated GFR-MDRD 82; Glucose 116 mg/dL (70-105); Potassium 3.8 mmol/L (3.5-5.1); Sodium 140 mmol/L (136-145)
[2019-06-01] MEDS: Lidocaine 5% Patch TD SCH (09:20)
[2019-06-01] MEDS: Polyethylene Glycol 3350 17 GM Packet PO SCH (09:20)
[2019-06-01] MEDS: hydrALAZINE 25 MG TAB PO SCH ×3 (09:20→20:56)
[2019-06-01] MEDS: predniSONE 20 MG TAB PO SCH (09:20)
[2019-06-01] MEDS: Senokot S 8.6-50 MG TAB PO SCH ×2 (09:20→20:56)
[2019-06-01] MEDS: Mometasone/Formoterol 120 PUFF INHALER INH SCH ×2 (11:17→18:12)
--- NOTE | 2019-06-01 11:44 | PRG ---
DATE OF SERVICE: 06/01/2019 SUBJECTIVE: Arpan Clay is a morbidly obese gentleman. This morning, he is better. OBJECTIVE: VITAL SIGNS: His saturations are 93% on 2 L, respirations 22, pulse 104, temperature 98, and blood pressure 134/75. CHEST: Decreased breath sounds. No wheezing. CARDIAC: Normal S1 and S2. No gallops. ABDOMEN: No masses. EXTREMITIES: 2+ edema. LABORATORY DATA: INR is 2.6. IMPRESSION: 1. Deep venous thrombosis/pulmonary embolism. 2. Morbid obesity. 3. Sleep apnea. 4. Stasis. PLAN: Pulmonary-tyson, he is ready to be discharged home. Follow up with Dr. Barber for an outpatient sleep study. Job ID: [id number]
--- NOTE | 2019-06-01 14:01 | PDOC.PN ---
- Subjective Encounter Start Date: 06/01/19 Encounter Start Time: 12:00 Subjective: is ambulating in hallway -: c/o increased edema in feet and hands this am -: no chest pain or palp - Objective Resuscitation Status - Order Detail: 05/24/19 20:27 Resuscitation Status Routine Co-Sign Provider: Resuscitation Status: FULL: Full Resuscitation MAR Reviewed: Yes Vital Signs & Weight: Vital Signs (12 hours) Temp Pulse Resp BP BP BP Pulse Ox 06/01/19 11:35 98.6 F 113 H 20 134/75 93 L 06/01/19 11:28 104 H 16 06/01/19 11:17 116 H 16 06/01/19 09:20 112 H 06/01/19 09:14 98.9 F 112 H 22 H 134/75 93 L 06/01/19 07:50 134/75 94 L 06/01/19 07:21 95 06/01/19 07:20 116 H 16 06/01/19 03:53 98.7 F 111 H 18 140/70 92 L 06/01/19 02:30 100 20 96 Weight Admit Weight 304 lb 3.2 oz Weight 314 lb 9.6 oz I&O: 05/31/19 06/01/19 06/02/19 06:59 06:59 06:59 Intake Total 1866.55 1200 Output Total 1850 2575 Balance 16.55 -1375 Result Diagrams: 05/30/19 21:46 06/01/19 07:12 Phys Exam - Physical Examination HEENT: PERRLA, sclera anicteric Neck: no JVD, supple Respiratory: no wheezing, no rales Cardiovascular: RRR, no significant murmur Gastrointestinal: soft, non-tender, positive bowel sounds Musculoskeletal: pulses present, edema present Neurological: non-focal, moves all 4 limbs Psychiatric: normal affect, A&O x 3 Dx/Plan (1) Acute pulmonary embolus Code(s): I26.99 - OTHER PULMONARY EMBOLISM WITHOUT ACUTE COR PULMONALE Status : Acute (2) Acute respiratory failure with hypoxia Code(s): J96.01 - ACUTE RESPIRATORY FAILURE WITH HYPOXIA Status: Acute (3) ROSALIA (obstructive sleep apnea) Code(s): G47.33 - OBSTRUCTIVE SLEEP APNEA (ADULT) (PEDIATRIC) Status: Suspected (4) Obesity hypoventilation syndrome Code(s): E66.2 - MORBID (SEVERE) OBESITY WITH ALVEOLAR HYPOVENTILATION Status : Suspected (5) Alcohol abuse Code(s): F10.10 - ALCOHOL ABUSE, UNCOMPLICATED Status: Chronic (6) Iron deficiency anemia Code(s): D50.9 - IRON DEFICIENCY ANEMIA, UNSPECIFIED Status: Chronic Qualifiers: Iron deficiency anemia type: unspecified iron deficiency Qualified Code(s) : D50.9 - Iron deficiency anemia, unspecified (7) HTN (hypertension) Code(s): I10 - ESSENTIAL (PRIMARY) HYPERTENSION Status: Chronic Qualifiers: Hypertension type: essential hypertension Qualified Code(s): I10 - Essential (primary) hypertension (8) Morbid obesity with BMI of 45.0-49.9, adult Code(s): E66.01 - MORBID (SEVERE) OBESITY DUE TO EXCESS CALORIES; Z68.42 - BODY MASS INDEX (BMI) 45.0-49.9, ADULT Status: Chronic (9) CHF (NYHA class III, ACC/AHA stage C) Code(s): I50.9 - HEART FAILURE, UNSPECIFIED Status: Chronic Comment: diastolic dysfunction with no decompensation - Plan needs diuresis -: is awaiting help from reg meds,financial help for f/u,out pt coumadin f/ -: family is not sure where they want to go for f/u ?[facility], he -: -has to pay at either site and are contemplating -: will need oxygen for dc plan, outpt sleep study * . is on coumadin 7.5mg daily, prednisone 40mg daily x2 days, nebs prn. May switch to humidified oxygen, its irritating his pharynx with dry air. d/w at length with daughter, and reg dc plan Needs coumadin education including diet info. Review of Systems - Medications/Allergies Allergies/Adverse Reactions: Allergies Allergy/AdvReac Type Severity Reaction Status Date / Time No Known Allergies Allergy Verified 05/24/19 19:55 Medications: Current Medications Acetaminophen (Tylenol) 650 mg PO Q4H PRN PRN Reason: Headache/Fever/Mild Pain (1-3) Last Admin: 05/31/19 06:16 Dose: 650 mg Acetaminophen (Tylenol) 650 mg GA Q4H PRN PRN Reason: Headache/Fever/Mild Pain (1-3) Albuterol/Ipratropium (Duoneb) 3 ml NEB [id number] PRN PRN Reason: SOB &/or Wheezing Last Admin: 05/31/19 09:56 Dose: 3 ml Albuterol/Ipratropium (Duoneb) 3 ml NEB [id number] [facility] Last Admin: 06/01/19 11:28 Dose: 3 ml Bisacodyl (Dulcolax) 10 mg GA Q8H PRN PRN Reason: Constipation Clonidine (Catapres) 0.1 mg PO Q4H PRN PRN Reason: SBP Greater Than 170 Furosemide (Lasix) 20 mg SLOW IVP 0600,1400 [facility] Last Admin: 06/01/19 05:46 Dose: 20 mg Heparin Sodium (Porcine) (Heparin 1,000 Units/Ml (10 Ml)) 0 units SLOW IVP ASDIR [facility]; Protocol Last Admin: 05/28/19 18:23 Dose: 11,048 unit Hydralazine HCl (Apresoline) 25 mg PO TID [facility] Last Admin: 06/01/19 09:20 Dose: 25 mg Hydralazine HCl (Apresoline) 10 mg SLOW IVP Q4H PRN PRN Reason: SBP > 180 and HR < 70 Lidocaine (Lidoderm 5% Patch) 1 patch TD DAILY [facility] Last Admin: 06/01/19 09:20 Dose: 1 patch Miscellaneous Medication (Lidocaine Patch Removal) 1 each TOP 2100 [facility] Last Admin: 05/31/19 21:01 Dose: 1 each Mometasone Furoate/Formoterol Fumar (Dulera 200 Mcg/5 Mcg Inhaler) 2 puff INH BID-RT [facility] Last Admin: 06/01/19 11:17 Dose: 2 puff Ondansetron HCl (Zofran Odt) 4 mg PO Q6H PRN PRN Reason: Nausea/Vomiting Last Admin: 05/30/19 09:03 Dose: 4 mg Polyethylene Glycol (Miralax) 17 gm PO DAILY [facility] Last Admin: 06/01/19 09:20 Dose: 17 gm Prednisone (Prednisone) 40 mg PO QAM-[facility] Stop: 06/03/19 08:01 Last Admin: 06/01/19 09:20 Dose: 40 mg Senna/Docusate Sodium (Senokot S) 2 tab PO BID [facility] Last Admin: 06/01/19 09:20 Dose: 2 tab Sodium Chloride (Flush - Normal Saline) 10 ml IVF Q12HR PRN PRN Reason: Saline Flush Last Admin: 05/29/19 20:30 Dose: 10 ml Sodium Chloride (Flush - Normal Saline) 10 ml IVF PRN PRN PRN Reason: Saline Flush Warfarin Sodium (Coumadin) 7.5 mg PO 1700 [facility] Last Admin: 05/31/19 16:42 Dose: 7.5 mg
[2019-06-01] MEDS: Warfarin Sodium 5 MG TAB PO SCH (17:38)
[2019-06-01] MEDS: Lidocaine Patch Removal 1 EACH TOP SCH (21:02)
[2019-06-02 00:49] LABS: Hemoglobin 10.2 g/dL (14.0-18.0); Platelet Count 308 thou/uL (130-400)
[2019-06-02] MEDS: Furosemide 20 MG/2 ML VIAL SLOW IVP SCH ×2 (05:43→14:39)
[2019-06-02 06:35] LABS: Anion Gap 11 mmol/L (10-20); BUN (Urea Nitrogen) 10 mg/dL (8.4-25.7); Calc. Creatinine Clearance 179 mL/min (70-130); Calcium 9.3 mg/dL (7.8-10.44); Carbon Dioxide 31 mmol/L (22-29); Chloride 104 mmol/L (98-107); Estimated GFR-MDRD 86; Glucose 86 mg/dL (70-105); Potassium 3.9 mmol/L (3.5-5.1); Sodium 142 mmol/L (136-145)
[2019-06-02] MEDS: Mometasone/Formoterol 120 PUFF INHALER INH SCH ×2 (07:04→18:18)
[2019-06-02] MEDS: predniSONE 20 MG TAB PO SCH (08:38)
[2019-06-02] MEDS: hydrALAZINE 25 MG TAB PO SCH (08:39)
[2019-06-02] MEDS: Lidocaine 5% Patch TD SCH (08:39)
[2019-06-02] MEDS: Polyethylene Glycol 3350 17 GM Packet PO SCH (08:39)
[2019-06-02] MEDS: Senokot S 8.6-50 MG TAB PO SCH ×2 (08:39→22:09)
--- NOTE | 2019-06-02 11:41 | PDOC.PN ---
- Subjective Encounter Start Date: 06/02/19 Encounter Start Time: 11:30 Subjective: feels better, edema is getting better -: no chest pain or palp - Objective Resuscitation Status - Order Detail: 05/24/19 20:27 Resuscitation Status Routine Co-Sign Provider: Resuscitation Status: FULL: Full Resuscitation MAR Reviewed: Yes Vital Signs & Weight: Vital Signs (12 hours) Temp Pulse Resp BP BP BP Pulse Ox 06/02/19 11:35 99 06/02/19 11:14 80 20 06/02/19 08:39 111 H 06/02/19 08:32 98.3 F 111 H 20 141/81 H 92 L 06/02/19 07:35 94 L 06/02/19 07:04 96 12 06/02/19 06:50 72 16 06/02/19 04:00 149/80 H 06/02/19 03:55 98.5 F 97 24 H 149/80 H 93 L 06/02/19 01:38 97 18 06/02/19 00:00 137/87 06/01/19 23:50 98.6 F 105 H 22 H 139/79 95 Weight Admit Weight 304 lb 3.2 oz Weight 319 lb I&O: 06/01/19 06/02/19 06/03/19 06:59 06:59 06:59 Intake Total 1200 1020 Output Total 2575 1930 Balance -1375 -910 Result Diagrams: 06/02/19 00:26 06/02/19 05:45 Phys Exam - Physical Examination HEENT: PERRLA, moist MMs Neck: no JVD, supple Respiratory: no wheezing, no rales Cardiovascular: RRR, no significant murmur Gastrointestinal: soft, non-tender, positive bowel sounds Musculoskeletal: no edema, pulses present Neurological: non-focal, moves all 4 limbs Psychiatric: normal affect, A&O x 3 Dx/Plan (1) Acute pulmonary embolus Code(s): I26.99 - OTHER PULMONARY EMBOLISM WITHOUT ACUTE COR PULMONALE Status : Acute (2) Acute respiratory failure with hypoxia Code(s): J96.01 - ACUTE RESPIRATORY FAILURE WITH HYPOXIA Status: Acute (3) ROSALIA (obstructive sleep apnea) Code(s): G47.33 - OBSTRUCTIVE SLEEP APNEA (ADULT) (PEDIATRIC) Status: Suspected (4) Obesity hypoventilation syndrome Code(s): E66.2 - MORBID (SEVERE) OBESITY WITH ALVEOLAR HYPOVENTILATION Status : Suspected (5) Alcohol abuse Code(s): F10.10 - ALCOHOL ABUSE, UNCOMPLICATED Status: Chronic (6) Iron deficiency anemia Code(s): D50.9 - IRON DEFICIENCY ANEMIA, UNSPECIFIED Status: Chronic Qualifiers: Iron deficiency anemia type: unspecified iron deficiency Qualified Code(s) : D50.9 - Iron deficiency anemia, unspecified (7) HTN (hypertension) Code(s): I10 - ESSENTIAL (PRIMARY) HYPERTENSION Status: Chronic Qualifiers: Hypertension type: essential hypertension Qualified Code(s): I10 - Essential (primary) hypertension (8) Morbid obesity with BMI of 45.0-49.9, adult Code(s): E66.01 - MORBID (SEVERE) OBESITY DUE TO EXCESS CALORIES; Z68.42 - BODY MASS INDEX (BMI) 45.0-49.9, ADULT Status: Chronic (9) CHF (NYHA class III, ACC/AHA stage C) Code(s): I50.9 - HEART FAILURE, UNSPECIFIED Status: Chronic Comment: diastolic dysfunction with no decompensation - Plan change lasix dose -: has ambulated wo oxygen in hallway with spo2 of >90% -: is using cpap at night, will need outpt sleep study -: continue coumadin, dulera, nebs, pred last dose today -: hemostable, d/w CM with all the plans for dc * . family says they want to f/u at [facility] with his established PA for coumadin. Review of Systems - Medications/Allergies Allergies/Adverse Reactions: Allergies Allergy/AdvReac Type Severity Reaction Status Date / Time No Known Allergies Allergy Verified 05/24/19 19:55 Medications: Current Medications Acetaminophen (Tylenol) 650 mg PO Q4H PRN PRN Reason: Headache/Fever/Mild Pain (1-3) Last Admin: 05/31/19 06:16 Dose: 650 mg Acetaminophen (Tylenol) 650 mg SC Q4H PRN PRN Reason: Headache/Fever/Mild Pain (1-3) Albuterol/Ipratropium (Duoneb) 3 ml NEB [id number] PRN PRN Reason: SOB &/or Wheezing Last Admin: 05/31/19 09:56 Dose: 3 ml Albuterol/Ipratropium (Duoneb) 3 ml NEB [id number] [facility] Last Admin: 06/02/19 11:14 Dose: 3 ml Bisacodyl (Dulcolax) 10 mg SC Q8H PRN PRN Reason: Constipation Clonidine (Catapres) 0.1 mg PO Q4H PRN PRN Reason: SBP Greater Than 170 Furosemide (Lasix) 20 mg SLOW IVP 0600,1400 [facility] Last Admin: 06/02/19 05:43 Dose: 20 mg Heparin Sodium (Porcine) (Heparin 1,000 Units/Ml (10 Ml)) 0 units SLOW IVP ASDIR [facility]; Protocol Last Admin: 05/28/19 18:23 Dose: 11,048 unit Hydralazine HCl (Apresoline) 25 mg PO TID [facility] Last Admin: 06/02/19 08:39 Dose: 25 mg Hydralazine HCl (Apresoline) 10 mg SLOW IVP Q4H PRN PRN Reason: SBP > 180 and HR < 70 Lidocaine (Lidoderm 5% Patch) 1 patch TD DAILY [facility] Last Admin: 06/02/19 08:39 Dose: 1 patch Miscellaneous Medication (Lidocaine Patch Removal) 1 each TOP 2100 [facility] Last Admin: 06/01/19 21:02 Dose: Not Given Mometasone Furoate/Formoterol Fumar (Dulera 200 Mcg/5 Mcg Inhaler) 2 puff INH BID-RT [facility] Last Admin: 06/02/19 07:04 Dose: 2 puff Ondansetron HCl (Zofran Odt) 4 mg PO Q6H PRN PRN Reason: Nausea/Vomiting Last Admin: 05/30/19 09:03 Dose: 4 mg Polyethylene Glycol (Miralax) 17 gm PO DAILY [facility] Last Admin: 06/02/19 08:39 Dose: 17 gm Prednisone (Prednisone) 40 mg PO QAM-WM [facility] Stop: 06/03/19 08:01 Last Admin: 06/02/19 08:38 Dose: 40 mg Senna/Docusate Sodium (Senokot S) 2 tab PO BID [facility] Last Admin: 06/02/19 08:39 Dose: 2 tab Sodium Chloride (Flush - Normal Saline) 10 ml IVF Q12HR PRN PRN Reason: Saline Flush Last Admin: 05/29/19 20:30 Dose: 10 ml Sodium Chloride (Flush - Normal Saline) 10 ml IVF PRN PRN PRN Reason: Saline Flush Warfarin Sodium (Coumadin) 7.5 mg PO 1700 [facility] Last Admin: 06/01/19 17:38 Dose: 7.5 mg
[2019-06-02] MEDS ORDERED: Furosemide 40 MG/4 ML VIAL SLOW IVP SCH (14:45)
[2019-06-02] MEDS: Warfarin Sodium 5 MG TAB PO SCH (17:55)
[2019-06-02] MEDS: Lidocaine Patch Removal 1 EACH TOP SCH (22:08)
[2019-06-03] MEDS: Furosemide 40 MG/4 ML VIAL SLOW IVP SCH ×2 (05:40→14:07)
[2019-06-03 05:50] LABS: Anion Gap 13 mmol/L (10-20); BUN (Urea Nitrogen) 12 mg/dL (8.4-25.7); Calc. Creatinine Clearance 171 mL/min (70-130); Carbon Dioxide 31 mmol/L (22-29); Chloride 101 mmol/L (98-107); Estimated GFR-MDRD 82; Glucose 85 mg/dL (70-105); Potassium 3.5 mmol/L (3.5-5.1); Sodium 141 mmol/L (136-145)
[2019-06-03] MEDS: Mometasone/Formoterol 120 PUFF INHALER INH SCH (06:52)
[2019-06-03] MEDS: predniSONE 20 MG TAB PO SCH (09:53)
[2019-06-03] MEDS: Senokot S 8.6-50 MG TAB PO SCH (09:53)
[2019-06-03] MEDS: Lidocaine 5% Patch TD SCH (09:53)
[2019-06-03] MEDS: Polyethylene Glycol 3350 17 GM Packet PO SCH (09:54)
--- NOTE | 2019-06-03 11:07 | PDOC.PN ---
- Subjective Encounter Start Date: 06/03/19 Encounter Start Time: 09:15 Subjective: no sob, is sitting in chair -: feels better - Objective Resuscitation Status - Order Detail: 05/24/19 20:27 Resuscitation Status Routine Co-Sign Provider: Resuscitation Status: FULL: Full Resuscitation MAR Reviewed: Yes Vital Signs & Weight: Vital Signs (12 hours) Temp Pulse Resp BP Pulse Ox 06/03/19 10:12 99 20 06/03/19 07:13 98.7 F 99 20 165/85 H 96 06/03/19 06:52 91 16 06/03/19 06:43 91 16 06/03/19 03:50 98.1 F 95 22 H 162/89 H 92 L 06/03/19 02:41 95 16 95 06/02/19 23:45 97.9 F 108 H 22 H 144/82 H 93 L Weight Admit Weight 304 lb 3.2 oz Weight 314 lb 11.2 oz I&O: 06/02/19 06/03/19 06/04/19 06:59 06:59 06:59 Intake Total 1020 1920 Output Total 1930 2790 Balance -910 -870 Result Diagrams: 06/02/19 00:26 06/03/19 05:07 Phys Exam - Physical Examination HEENT: PERRLA, moist MMs Neck: no JVD, supple Respiratory: no wheezing, no rales Cardiovascular: RRR, no significant murmur Gastrointestinal: soft, non-tender, positive bowel sounds Musculoskeletal: pulses present, edema present Neurological: non-focal, moves all 4 limbs Psychiatric: normal affect, A&O x 3 Dx/Plan (1) Acute pulmonary embolus Code(s): I26.99 - OTHER PULMONARY EMBOLISM WITHOUT ACUTE COR PULMONALE Status : Acute (2) Acute respiratory failure with hypoxia Code(s): J96.01 - ACUTE RESPIRATORY FAILURE WITH HYPOXIA Status: Resolved (3) ROSALIA (obstructive sleep apnea) Code(s): G47.33 - OBSTRUCTIVE SLEEP APNEA (ADULT) (PEDIATRIC) Status: Suspected (4) Obesity hypoventilation syndrome Code(s): E66.2 - MORBID (SEVERE) OBESITY WITH ALVEOLAR HYPOVENTILATION Status : Suspected (5) Alcohol abuse Code(s): F10.10 - ALCOHOL ABUSE, UNCOMPLICATED Status: Chronic (6) Iron deficiency anemia Code(s): D50.9 - IRON DEFICIENCY ANEMIA, UNSPECIFIED Status: Chronic Qualifiers: Iron deficiency anemia type: unspecified iron deficiency Qualified Code(s) : D50.9 - Iron deficiency anemia, unspecified (7) HTN (hypertension) Code(s): I10 - ESSENTIAL (PRIMARY) HYPERTENSION Status: Chronic Qualifiers: Hypertension type: essential hypertension Qualified Code(s): I10 - Essential (primary) hypertension (8) Morbid obesity with BMI of 45.0-49.9, adult Code(s): E66.01 - MORBID (SEVERE) OBESITY DUE TO EXCESS CALORIES; Z68.42 - BODY MASS INDEX (BMI) 45.0-49.9, ADULT Status: Chronic (9) CHF (NYHA class III, ACC/AHA stage C) Code(s): I50.9 - HEART FAILURE, UNSPECIFIED Status: Chronic Comment: diastolic dysfunction with no decompensation - Plan hemostable -: dc pt home -: needs outpt sleep study -: d/w pt and at bedside -: he will have inr check on wednesday at [facility] * .
[2019-06-03 12:53] VITALS: BP 138/78; TEMP 98.5
--- NOTE | 2019-06-04 11:01 | DIS ---
DATE OF ADMISSION: 05/24/2019 DATE OF DISCHARGE: 06/03/2019 DISCHARGE DISPOSITION: Home. PRIMARY DISCHARGE DIAGNOSES: Acute pulmonary embolus, morbid obesity, possible sleep apnea with obesity hypoventilation syndrome, acute respiratory failure with hypoxia resolved, alcohol abuse, iron deficiency anemia, hypertension, diastolic dysfunction with congestive heart failure with no decompensation. PROCEDURES DONE DURING HOSPITALIZATION: The patient had CT angio chest done on the day of admission, which showed bilateral pulmonary emboli. Overall, moderate clot burden was seen. LABORATORY DATA: H and H of 10 and 32, platelet count 308. INR was 2.6 on the 4th. Discharge BUN and creatinine are 12 and 0.9. BNP was 147. DISCHARGE MEDICATIONS: 1. Coumadin 7.5 mg p.o. daily. 2. Lasix 40 mg twice daily. 3. K-Dur 20 mEq p.o. daily. 4. Dulera inhaler twice daily. 5. Hydralazine 25 mg three times daily. 6. Albuterol inhaler q.6 hourly p.r.n. ALLERGIES: NO KNOWN DRUG ALLERGIES. DISCHARGE PLAN: The patient is to follow up with his primary care physician, CARLYN Linares at [facility] on Wednesday for INR check and followup appointment. He needs to follow up with Dr. Barber in 2 weeks. INPATIENT CONSULT: Dr. Barber for Pulmonology. BRIEF COURSE DURING HOSPITALIZATION: The patient initially came to ER with complaints of shortness of breath at rest and weakness. Initial CT angio chest done on admission showed moderate clot burden with a pulmonary embolus. He was started on heparin drip and Coumadin was added. His INR is therapeutic. The patient is morbidly obese with a BMI of around 47. He likely has underlying sleep apnea and obesity hypoventilation syndrome. He was placed on CPAP at night during his stay here. The patient initially was on oxygen with which he was weaned off. From last 36 hours, the patient is on room air and is saturating well. The patient has no funding and no health insurance and discharge plan was delayed due to the same. He will have INR checks and followups with Mr. Jeniffer Warren at [facility] where he likes to follow up. He also requires outpatient sleep study urgently following which he will obtain a CPAP machine and has been counseled regarding the same to follow up with Dr. Barber. His medications were optimized. He is currently on Coumadin 7.5 mg daily. Case Management help was requested for medication help as well. He had a bit of anasarca with increased lower extremity edema for which he had diuresis done during his stay. The patient was on 80 mg twice daily Lasix at home, which was held for initial 3 days due to massive pulmonary embolus. He was diuresed for the last 3 days prior to discharge and most of his edema has resolved at the time of discharge. He is also wearing a ROBYN hose to keep the edema down. His ambulatory spo2 was >95% on room air. Also, the patient was counseled to be physically active and to keep his leg elevated when he is sitting down to prevent dependent edema. [facility] was also consulted for help with medications. He is hemodynamically stable, ambulating well in the hallway, and eating well prior to discharge. Please see a [id number] documentation for the day of discharge on [address]. Job ID: [id number] MTDD
== END 2019-06-03 14:38 | disposition home or self-care (01) | DRG 175 ==
LOC: ERS 15:08 → OBSVTOIN 19:21 → 2SW 19:21 → 2NO 05-25 08:51
PROVIDERS: ADMIT Emergency Medicine; ATTEND Emergency Medicine
DX: I26.99 Other pulmonary embolism without acute cor pulmonale (principal); J96.01 Acute respiratory failure with hypoxia; E66.2 Morbid (severe) obesity with alveolar hypoventilation; Z68.42 Body mass index [BMI] 45.0-49.9, adult; I50.32 Chronic diastolic (congestive) heart failure; F10.10 Alcohol abuse, uncomplicated; D50.9 Iron deficiency anemia, unspecified; I11.0 Hypertensive heart disease with heart failure; E87.6 Hypokalemia; K76.0 Fatty (change of) liver, not elsewhere classified; J20.9 Acute bronchitis, unspecified
CPT/HCPCS: 36415; 36416; 71045; 71275; 76700; 80048; 80053; 82550; 82805; 83735; 83880; 83930; 83935; 84100; 84300; 84484; 85014; 85018; 85025; 85049; 85379; 85610; 85730; 93005; 94640; 94660; 94664; 96365; 96367; 96375; J1644; J1940; J2920; J3475; J3480; J3490; J7050; J7512; J7620; Q0162; Q9966; S0028

== ENCOUNTER 2019-08-07 14:22 | Outpatient (CLI) | payer OTHER ==
--- NOTE | 2019-08-07 14:51 | RAD ---
Exam:Pain. HISTORY: Pain. COMPARISON: None FINDINGS: Mild degenerative change of the patellofemoral compartment and medial compartment. No fract ure or malalignment. No joint effusion. IMPRESSION: Mild bicompartmental degenerative change.
--- NOTE | 2019-08-07 14:52 | RAD ---
Exam:Left knee 4 views HISTORY: Medial left knee pain COMPARISON: None FINDINGS: Mild degenerative change in the medial compartment. Minimal degenerative change patellofemo ral. No joint effusion. No fracture or malalignment. IMPRESSION: Degenerative changes as above.
== END 2019-08-07 14:23 | disposition home or self-care (01) ==
LOC: BICRAD 14:22
PROVIDERS: ATTEND Family Medicine
DX: M25.561 Pain in right knee (principal); M25.562 Pain in left knee; M17.11 Unilateral primary osteoarthritis, right knee

== ENCOUNTER 2020-02-12 17:33 | Emergency (ER) | payer OTHER, SELFPAY ==
[2020-02-12 19:37] LABS: Hemoglobin 10.3 g/dL (14.0-18.0); Mean Corpuscular HGB CONC 30.9 g/dL (32.0-36.0); Mean Corpuscular Hemoglobin 24.3 pg (27.0-31.0); Mean Corpuscular Volume 78.7 fL (78.0-98.0); Mean Platelet Volume 10.1 fL (7.4-10.4); Platelet Count 178 thou/uL (130-400); RBC Distribution Width 13.9 % (11.5-14.5); Red Blood Cell (RBC) Count 4.24 mill/uL (4.70-6.10); White Blood Cell (WBC) Count 7.1 thou/uL (4.8-10.8)
[2020-02-12 19:43] LABS: PTT 59.6 SEC (22.9-36.1); Prothrombin Time 48.1 SEC (12.0-14.7)
[2020-02-12 19:51] LABS: INR-International Normal Ratio 5.3
--- NOTE | 2020-02-12 19:57 | CT ---
CT head without contrast: Multiple axial tomograms obtained through the head without IV enhancement. INDICATIONS: Headache COMPARISON: None FINDINGS: Ventricles have normal size and position. No evidence of intracranial mass, hemorrhage, edema, or infarct. Visualized sinuses and mastoids appear clear. Bony calvarium appears unremarkable. IMPRESSION: No acute finding
[2020-02-12 19:58] LABS: Bilirubin Negative (Negative); Blood, Urine Negative (Negative); Clarity Clear (Clear); Glucose, Urine (Dipstick) Normal (Negative); Leukocyte Negative Leu/uL (Negative); Nitrite Negative (Negative); Protein, Urine (Dipstick) 10 mg/dL (Neg-Trace); Urobilinogen Normal mg/dL (Less than 2)
[2020-02-12 20:00] LABS: ALT (SGPT) 20 U/L (8-55); AST (SGOT) 21 U/L (5-34); Albumin 3.8 g/dL (3.4-4.8); Alkaline Phosphatase 80 U/L (40-110); Anion Gap 12 mmol/L (10-20); BUN (Urea Nitrogen) 14 mg/dL (8.4-25.7); Bilirubin, Total 0.5 mg/dL (0.2-1.2); Calc. Creatinine Clearance 0 mL/min (70-130); Calcium 10.1 mg/dL (7.8-10.44); Carbon Dioxide 25 mmol/L (23-31); Chloride 107 mmol/L (98-107); Estimated GFR-MDRD Greater than 90; Globulin 3.3 g/dL (2.4-3.5); Glucose 89 mg/dL (80-115); Magnesium 1.7 mg/dL (1.6-2.6); Potassium 3.8 mmol/L (3.5-5.1); Protein, Total 7.1 g/dL (5.8-8.1); Sodium 140 mmol/L (136-145)
[2020-02-12 20:03] LABS: Band 6 % (5-11); Eosinophils 1 % (0-10); Hypochromia SLIGHT = 6-15 cells (100X) (0-5/hpf); Lymphocytes 28 % (21-51); MDiff Complete? YES; Monocytes 13 % (0-10); Neutrophil 42 % (42-75); Ovalocytes SLIGHT = 2-5 cells (100X) (0-1/hpf); Platelet Morphology Comment Appears Adequate; Polychromasia SLIGHT = 2-3 cells (100X) (0-2/hpf); Reactive Lymphocytes 9 % (0-10); Schistocytes SLIGHT = 2-5 cells (100X) (0-1/hpf); Tear Drops SLIGHT = 2-5 cells (100X) (0-1/hpf)
[2020-02-12] MEDS ORDERED: Bupivacaine 0.5% 10 ML VIAL ONE (21:31)
== END 2020-02-12 21:53 | disposition home or self-care (01) ==
LOC: ERS 17:33
DX: G44.209 Tension-type headache, unspecified, not intractable (principal); E78.5 Hyperlipidemia, unspecified; I10 Essential (primary) hypertension; E78.00 Pure hypercholesterolemia, unspecified; Z79.899 Other long term (current) drug therapy
CPT/HCPCS: 36415; 70450; 80053; 81003; 83735; 85025; 85610; 85652; 85730; 86140; 87804; 93005; J3490

== ENCOUNTER 2022-04-07 14:58 | Emergency (ER) | payer SELFPAY ==
[2022-04-07 15:28] LABS: #Eosinphils 0.1 thou/uL (0.0-0.7); #Lymphocytes 2.3 thou/uL (1.20-3.40); #Monocytes 1.1 thou/uL (0.11-0.59); #Neutrophils 3.8 thou/uL (1.40-6.50); %Basophils 0.3 % (0.0-1.0); %Eosinophils 1.5 % (0.0-10.0); %Lymphocytes 31.3 % (21.0-51.0); %Monocytes 14.7 % (0.0-10.0); %Neutrophils 52.2 % (42.0-75.0); Hemoglobin 14.2 g/dL (14.0-18.0); Mean Corpuscular HGB CONC 32.5 g/dL (32.0-36.0); Mean Corpuscular Hemoglobin 31.5 pg (27.0-31.0); Mean Corpuscular Volume 96.9 fL (78.0-98.0); Mean Platelet Volume 8.1 fL (7.4-10.4); Platelet Count 189 thou/uL (130-400); RBC Distribution Width 12.1 % (11.5-14.5); Red Blood Cell (RBC) Count 4.49 mill/uL (4.70-6.10); White Blood Cell (WBC) Count 7.3 thou/uL (4.8-10.8)
[2022-04-07 15:49] LABS: ALT (SGPT) 22 U/L (8-55); AST (SGOT) 21 U/L (5-34); Albumin 3.6 g/dL (3.4-4.8); Alkaline Phosphatase 67 U/L (40-110); Anion Gap 13 mmol/L (10-20); BUN (Urea Nitrogen) 9 mg/dL (8.4-25.7); Bilirubin, Total 0.7 mg/dL (0.2-1.2); Calc. Creatinine Clearance 0 mL/min (70-130); Calcium 9.4 mg/dL (7.8-10.44); Carbon Dioxide 25 mmol/L (23-31); Chloride 108 mmol/L (98-107); Glucose 140 mg/dL (80-115); Potassium 3.7 mmol/L (3.5-5.1); Protein, Total 6.6 g/dL (5.8-8.1); Sodium 142 mmol/L (136-145)
== END 2022-04-07 19:46 | disposition home or self-care (01) ==
LOC: ERS 14:58
DX: I27.20 Pulmonary hypertension, unspecified (principal); E78.5 Hyperlipidemia, unspecified; E78.00 Pure hypercholesterolemia, unspecified; Z86.711 Personal history of pulmonary embolism; Z79.899 Other long term (current) drug therapy
CPT/HCPCS: 36415; 71045; 71275; 80053; 83880; 84484; 85025; 85379; 93005

== ENCOUNTER 2022-05-02 09:33 | Inpatient (IN) | payer SELFPAY ==
[~2022-05-02 09:33] MED LIST changes: -ISOVUE-370 76%-LOCM 1 ML ONE; +Iopamidol 370 76% 100 ML VIAL ONE
[2022-05-02 10:30] LABS: #Eosinphils 0.2 thou/uL (0.0-0.7); #Lymphocytes 2.3 thou/uL (1.20-3.40); #Monocytes 0.8 thou/uL (0.11-0.59); #Neutrophils 2.4 thou/uL (1.40-6.50); %Basophils 0.3 % (0.0-1.0); %Lymphocytes 39.9 % (21.0-51.0); %Monocytes 14.1 % (0.0-10.0); %Neutrophils 42.7 % (42.0-75.0); Mean Corpuscular HGB CONC 33.1 g/dL (32.0-36.0); Mean Corpuscular Volume 93.9 fL (78.0-98.0); Mean Platelet Volume 8.9 fL (7.4-10.4); Platelet Count 128 thou/uL (130-400); RBC Distribution Width 11.5 % (11.5-14.5); Red Blood Cell (RBC) Count 4.84 mill/uL (4.70-6.10); White Blood Cell (WBC) Count 5.6 thou/uL (4.8-10.8)
[2022-05-02 10:46] LABS: ALT (SGPT) 9 U/L (8-55); AST (SGOT) 18 U/L (5-34); Albumin 3.4 g/dL (3.4-4.8); Alkaline Phosphatase 60 U/L (40-110); Anion Gap 12 mmol/L (10-20); BUN (Urea Nitrogen) 5 mg/dL (8.4-25.7); Bilirubin, Total 0.7 mg/dL (0.2-1.2); Calc. Creatinine Clearance 0 mL/min (70-130); Calcium 9.4 mg/dL (7.8-10.44); Carbon Dioxide 24 mmol/L (23-31); Chloride 106 mmol/L (98-107); Globulin 3.6 g/dL (2.4-3.5); Glucose 104 mg/dL (80-115); Magnesium 1.5 mg/dL (1.6-2.6); Potassium 3.7 mmol/L (3.5-5.1); Sodium 138 mmol/L (136-145)
[2022-05-02] MEDS ORDERED: Magnesium 2 GM/50 ML BAG (IN WATER) ONE (11:07)
[2022-05-02 12:32] LABS: Bilirubin Negative (Negative); Blood, Urine Negative (Negative); Clarity Clear (Clear); Glucose, Urine (Dipstick) Normal (Negative); Ketone, Urine Negative (Negative); Leukocyte Negative Leu/uL (Negative); Nitrite Negative (Negative); Protein, Urine (Dipstick) Negative (Neg-Trace); Urobilinogen Normal mg/dL (Less than 2)
[2022-05-02 12:45] LABS: Specific Gravity, Urine 1.047 (1.002-1.036)
[2022-05-02] MEDS ORDERED: Acetaminophen 650 MG Suppository PR PRN (13:37)
[2022-05-02] MEDS ORDERED: Calcium Carbonate 500 MG ChewTAB PO PRN (13:37)
[2022-05-02] MEDS ORDERED: Bisacodyl 5 MG TAB PO PRN (13:37)
[2022-05-02] MEDS ORDERED: hydrALAZINE 20 MG/ML VIAL SLOW IVP PRN (13:37)
[2022-05-02] MEDS ORDERED: Moisturizing Cream (Eucerin) 113 GM JAR TOP PRN (13:37)
[2022-05-02] MEDS ORDERED: Artificial Tear Sol 15 ML BOT EA EYE PRN (13:37)
[2022-05-02] MEDS ORDERED: Ondansetron ODT 4 MG TAB PO PRN (13:37)
[2022-05-02] MEDS ORDERED: Acetaminophen 325 MG TAB PO PRN (13:37)
[2022-05-02] MEDS ORDERED: Senokot S 8.6-50 MG TAB PO PRN (13:37)
[2022-05-02] MEDS ORDERED: Labetalol HCl 100 MG/20 ML VIAL SLOW IVP PRN (13:37)
[2022-05-02] MEDS ORDERED: Electrolyte Replacement Protocol 1 EACH FS SCH (13:45)
[2022-05-02] MEDS ORDERED: Enoxaparin Sodium 40 MG/0.4 ML SYRINGE SC SCH (14:00)
[2022-05-02] MEDS ORDERED: Electrolyte Replacement Protocol FS PRN ×2 (14:15→21:30)
[2022-05-02 14:19] LABS: Hemoglobin 14.4 g/dL (14.0-18.0); Platelet Count 150 thou/uL (130-400)
[2022-05-02 14:44] LABS: Anion Gap 12 mmol/L (10-20); BUN (Urea Nitrogen) 5 mg/dL (8.4-25.7); Calc. Creatinine Clearance 0 mL/min (70-130); Calcium 9.2 mg/dL (7.8-10.44); Carbon Dioxide 25 mmol/L (23-31); Chloride 106 mmol/L (98-107); Glucose 108 mg/dL (80-115); Potassium 3.4 mmol/L (3.5-5.1); Sodium 140 mmol/L (136-145)
[2022-05-02 15:50] VITALS: BMI 43.2
[2022-05-03 06:40] LABS: Anion Gap 13 mmol/L (10-20); BUN (Urea Nitrogen) 6 mg/dL (8.4-25.7); Calc. Creatinine Clearance 226 mL/min (70-130); Calcium 9.2 mg/dL (7.8-10.44); Carbon Dioxide 24 mmol/L (23-31); Chloride 106 mmol/L (98-107); Glucose 92 mg/dL (80-115); Magnesium 1.6 mg/dL (1.6-2.6); Potassium 3.6 mmol/L (3.5-5.1); Sodium 139 mmol/L (136-145)
[2022-05-03] MEDS ORDERED: Magnesium 2 GM/50 ML(in water) 2 GM in Premix Bag 1 BAG IVPB SCH (08:00)
[2022-05-03] MEDS: Enoxaparin Sodium 40 MG/0.4 ML SYRINGE SC SCH (08:30)
[2022-05-03 09:02] LABS: Actual Bicarbonate (HCO3v) 19 mEq/L (22-28); Base Excess -4.1 mEq/L (-2.0 to +3.0); Calcium, Ionized (venous) 1.18 mmol/L (1.16-1.32); Chloride (VBG) 103 mmol/L (98-106); Hemoglobin (Hb) 15.6 g/dL (13.1-17.2); Potassium (VBG) 3.63 mmol/L (3.70-5.30); Sodium 136.9 mmol/L (133-146); pH (venous) 7.41 (7.32-7.43)
[2022-05-03] MEDS ORDERED: Potassium Chloride 20 MEQ TAB PO SCH (17:00)
[2022-05-03] MEDS ORDERED: Furosemide 20 MG/2 ML VIAL SLOW IVP SCH (17:00)
[2022-05-03] MEDS ORDERED: Lisinopril 10 MG TAB PO SCH (17:00)
[2022-05-04] MEDS ORDERED: Lisinopril 20 MG TAB PO SCH (09:00)
[2022-05-04] MEDS ORDERED: Furosemide 20 MG TAB PO SCH (09:00)
[2022-05-04] MEDS: Enoxaparin Sodium 40 MG/0.4 ML SYRINGE SC SCH (11:51)
[2022-05-04] MEDS ORDERED: Potassium Chloride 20 MEQ TAB PO SCH (13:15)
[2022-05-04 15:33] VITALS: BP 111/69; TEMP 98.2
[2022-05-05] MEDS ORDERED: Potassium Chloride 10 MEQ TAB PO SCH (08:00)
== END 2022-05-04 15:46 | disposition home or self-care (01) | DRG 204 ==
LOC: SUATTDRO 09:33 → ERS 09:33 → T4-A 12:59
PROVIDERS: ADMIT Family Medicine; ATTEND Internal Medicine
PROC: 5A09357 Assistance with Respiratory Ventilation, Less than 24 Consecutive Hours, Continuous Positive Airway Pressure (ICD-10-PCS; principal; 2022-05-03)
DX: R06.00 Dyspnea, unspecified (principal); Z68.41 Body mass index [BMI] 40.0-44.9, adult; G47.30 Sleep apnea, unspecified; E78.5 Hyperlipidemia, unspecified; E78.00 Pure hypercholesterolemia, unspecified; I50.9 Heart failure, unspecified; I27.20 Pulmonary hypertension, unspecified; E66.9 Obesity, unspecified; F10.10 Alcohol abuse, uncomplicated; D69.6 Thrombocytopenia, unspecified; E66.01 Morbid (severe) obesity due to excess calories; I11.0 Hypertensive heart disease with heart failure; R53.83 Other fatigue; Z20.822 Contact with and (suspected) exposure to COVID-19; Z86.711 Personal history of pulmonary embolism; Z79.51 Long term (current) use of inhaled steroids; Z79.899 Other long term (current) drug therapy
CPT/HCPCS: 36415; 71045; 71275; 78452; 80048; 80053; 81003; 82805; 83735; 83880; 84439; 84443; 84484; 85025; 85379; 93005; 93017; 93306; 94660; 94760; A9500; J0153; J1650; J1940; J3475; Q9967; U0003; U0005